=== PATIENT | male | born 1945 | race Caucasian/White ===

== ENCOUNTER 2018-08-06 13:56 | Observation (INO) ==
[2018-08-06] MEDS ORDERED: NITROGLYCERIN SL 0.4 MG/TAB TAB SL STA ×2 (14:14→15:19)
[2018-08-06] MEDS ORDERED: SODIUM CHLORIDE 0.9% 500 ML IV SCH (14:15)
[2018-08-06 14:29] LABS: Basophils # (auto) 0.02 K/uL (0-0.2); Basophils % (auto) 0.3 %; Eosinophils # (auto) 0.23 K/uL (0-0.5); Eosinophils % (auto) 3.2 %; Hematocrit (blood only) 39.3 % (42-52); Hemoglobin 13.6 g/dL (14.0-18.0); Immature Granulocytes # (auto) 0.01 K/uL (0.00-0.02); Immature Granulocytes % (auto) 0.1 %; Lymphocytes # (auto) 1.86 K/uL (1.2-3.4); Lymphocytes % (auto) 25.5 %; Mean Corpuscular Hgb Conc 34.6 g/dL (32-36); Mean Corpuscular Volume 85.1 fL (80-100); Monocytes # (auto) 0.62 K/uL (0.11-0.59); Monocytes % (auto) 8.5 %; Neutrophils # (auto) 4.55 K/uL (1.4-6.5); Neutrophils % (auto) 62.4 %; Platelet Count 160 K/uL (130-400); RDW Coefficient of Variation 12.8 % (11.5-14.5); RDW Standard Deviation 39.2 fL (36.4-46.3); Red Blood Count 4.62 M/uL (4.7-6.1); White Blood Count 7.29 K/uL (4.8-10.8)
[2018-08-06 14:47] LABS: Alanine Aminotransferase 24 U/L (12-78); Albumin Level 4.2 gm/dl (3.4-5.0); Aspartate Aminotransferase 14 U/L (15-37); BUN Creatinine Ratio 16.6 (10-20); Blood Urea Nitrogen 20 mg/dl (7-18); Carbon Dioxide 29 mmol/L (21-32); Chloride 101 mmol/L (98-107); Creatinine Clr Calc Pharmacy 51.4 ml/min; Est GFR (African American) 67.3; Glucose 114 mg/dl (70-99); Potassium 3.7 mmol/L (3.5-5.1); Sodium 136 mmol/L (136-145)
[2018-08-06 14:51] LABS: Albumin Globulin Ratio 1.2 (0.9-2); Alkaline Phosphatase 69 U/L (45-117); Bilirubin,Total 0.7 mg/dl (0.2-1); Globulin 3.5 gm/dl (2.5-4.0); Total Protein 7.7 gm/dl (6.4-8.2); Troponin I < 0.015 ng/ml (0-0.045)
--- NOTE | 2018-08-06 15:02 | XRay Report ---
XR chest 1V portable CLINICAL HISTORY: Atypical chest pain COMPARISON STUDY: 10/07/2014 FINDINGS: The heart is the upper limits of normal in size. There is no failure. There is no focal pul monary consolidation. There are no pleural effusions. There are calcified left mediastinal lymph node s. There are left upper lobe calcified granulomas.[ IMPRESSION: No active disease in the chest. Electronically signed by: Billy Mcconnell M.D. 08/06/2018 3:01 PM
--- NOTE | 2018-08-06 15:03 | XRay Report ---
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 There is no acute fracture, dislocation or op aque foreign body identified. Imaged lung carrillo appear clear. Calcified left hilar lymph nodes vannessa tible with prior granulomatous disease. IMPRESSION: 1. No acute fracture or dislocation. 2. Mild glenohumeral and moderate AC joint osteoarthritis. The above report was generated using voice recognition software. It may contain grammatical, syntax o r spelling errors. Electronically signed by: Remi Santana M.D. 08/06/2018 3:02 PM
[2018-08-06] MEDS ORDERED: ASPIRIN CHEW 324 MG PO STA (15:19)
--- NOTE | 2018-08-06 15:40 | Emergency Department Note ---
Entered by Mago Trivedi acting as a scribe for He Browne MD History of Present Illness General Chief complaint: Chest Pain Stated complaint: CHEST PAIN, INTO ARM Time Seen by Provider: 08/06/18 14:00 Source: patient Limitations: no limitations History of Present Illness Provider complaint: chest pain Onset (ago): week(s) 3 Location: chest Maximum Pain Intensity: 5 Current Pain Intensity: 5 Quality: + burning and + sharp Relieved By: + rest Exacerbated By: + other (shoveling ) Associated symptoms: + denies other symptoms (swelling in legs, black stool) and + fever/chills (chills no fever); no nausea/vomiting Treatments prior to arrival: NSAID (Aleve) The patient is a 72 white male w/ PMHx of GERD, diabetes, and hypertension who presents to the ED w/ CC of chest pain beginning 3 weeks prior to arrival. The patient rates his pain a 5/10 in severity and describes the pain as burning and sharp. The patient states that he has chills. The patient denies any fevers, nausea, vomiting, swelling in legs, and black stool. The patient states that shoveling exacerbates the pain and states that that resting relieves the pain. The patient states that walking and eating does not make his pain worse. The patient denies a history of blood clots in his lungs or legs. The patient states that he does not take blood thinners. The patient denies any alcohol or drug use. The patient states that he took an Aleve prior to arrival. The patient states that he had shoulder surgery on March 14. The patient states that he has a history of an early CA on his paternal side. Home Medications Home Medications Medication Instructions Recorded Confirmed Type aspirin 81 mg PO QAM 08/06/18 08/06/18 History atorvastatin 20 mg PO DAILY 08/06/18 08/06/18 History cholecalciferol (vitamin D3) 1,000 unit PO DAILY 08/06/18 08/06/18 History [Vitamin D3] cyanocobalamin (vitamin B-12) 1,000 mcg PO DAILY 08/06/18 08/06/18 History [Vitamin B-12] losartan-hydrochlorothiazide 0.5 tab PO QAM 08/06/18 08/06/18 History metformin 500 mg PO BID 08/06/18 08/06/18 History ondansetron HCl [Zofran] 4 mg PO Q6 PRN 08/06/18 08/06/18 History pantoprazole 40 mg PO QAM 08/06/18 08/06/18 History Allergies Allergy/AdvReac Type Severity Reaction Status Date / Time oxycodone AdvReac Unknown NAUSEA Unverified 08/06/18 14:37 Past Med/Surg History Medical History GERD (gastroesophageal reflux disease) (Chronic) Hypertension (Chronic) Lumbosacral disc disease (Chronic) Social History Current Living Situation: Spouse Other Information That Helps Us Care for You: No Feels Safe at Home: Yes Safety Concerns: Feels Safe At This Time Smoking Status: Never smoker Hx Alcohol Use: No Hx Substance Use: No Beliefs That Will Affect Care: None Preferred Language: Romanian Communication Ability: Effective Review of Systems See HPI for pertinent positives & negatives. and A total of 10 systems reviewed and were otherwise negative Physical Exam Vital Signs Vital Signs - 24 hr 08/06/18 13:57 08/06/18 14:30 08/06/18 14:42 Temperature Temperature Source Oral Sepsis Recent Fever Within 48 Hours No Sepsis New/Unexplained Change in Mental Status No Sepsis Action Taken by Nursing No Action Required Pulse Rate 71 Pulse Rate [Apical] 64 63 Pulse Rhythm [Apical] Pulse Strength [Apical] Respiratory Rate 20 18 17 Respiratory Effort / Characteristics Non-Labored Respiratory Depth Normal Normal Respiratory Pattern Regular Blood Pressure 150/81 H Blood Pressure [Left Arm] Blood Pressure [Right Arm] 134/77 121/65 Blood Pressure Mean 104 Blood Pressure Mean [Left Arm] Blood Pressure Mean [Right Arm] 96 83 Blood Pressure Position [Left Arm] Blood Pressure Position [Right Arm] Lying Pulse Oximetry 95 94 94 Oxygen Delivery Method Room Air Room Air Room Air 08/06/18 14:56 08/06/18 15:31 08/06/18 17:11 Temperature Temperature Source Sepsis Recent Fever Within 48 Hours Sepsis New/Unexplained Change in Mental Status Sepsis Action Taken by Nursing Pulse Rate Pulse Rate [Apical] 63 60 Pulse Rhythm [Apical] Regular Regular Pulse Strength [Apical] Normal Respiratory Rate 18 18 Respiratory Effort / Characteristics Non-Labored Spontaneous Non-Labored Spontaneous Non-Labored Spontaneous Respiratory Depth Normal Normal Normal Respiratory Pattern Regular Regular Regular Blood Pressure Blood Pressure [Left Arm] Blood Pressure [Right Arm] 117/62 129/69 Blood Pressure Mean Blood Pressure Mean [Left Arm] Blood Pressure Mean [Right Arm] 80 89 Blood Pressure Position [Left Arm] Blood Pressure Position [Right Arm] Pulse Oximetry 92 94 Oxygen Delivery Method Room Air Room Air Room Air 08/06/18 17:20 08/06/18 18:30 08/06/18 19:31 Temperature 36.7 C Temperature Source Oral Sepsis Recent Fever Within 48 Hours Sepsis New/Unexplained Change in Mental Status Sepsis Action Taken by Nursing Pulse Rate 58 L Pulse Rate [Apical] 60 Pulse Rhythm [Apical] Regular Pulse Strength [Apical] Normal Respiratory Rate 17 22 Respiratory Effort / Characteristics Non-Labored Spontaneous Non-Labored Respiratory Depth Normal Normal Respiratory Pattern Regular Regular Blood Pressure Blood Pressure [Left Arm] Blood Pressure [Right Arm] 128/68 152/77 H Blood Pressure Mean Blood Pressure Mean [Left Arm] Blood Pressure Mean [Right Arm] 88 102 Blood Pressure Position [Left Arm] Blood Pressure Position [Right Arm] Lying Pulse Oximetry 96 96 Oxygen Delivery Method Room Air Room Air 08/06/18 19:54 Temperature Temperature Source Sepsis Recent Fever Within 48 Hours Sepsis New/Unexplained Change in Mental Status Sepsis Action Taken by Nursing Pulse Rate Pulse Rate [Apical] 57 L Pulse Rhythm [Apical] Pulse Strength [Apical] Respiratory Rate 18 Respiratory Effort / Characteristics Respiratory Depth Respiratory Pattern Blood Pressure Blood Pressure [Left Arm] 135/74 Blood Pressure [Right Arm] Blood Pressure Mean Blood Pressure Mean [Left Arm] 94 Blood Pressure Mean [Right Arm] Blood Pressure Position [Left Arm] Semi-fowlers Blood Pressure Position [Right Arm] Pulse Oximetry 95 Oxygen Delivery Method Room Air GENERAL: Well appearing, well nourished, NAD, non-toxic. EYE EXAM: Normal conjunctiva. PERRL, no anisocoria and EOM's grossly intact w/o pains. OROPHARYNX: No exudate, posterior pharynx is clear, no tonsillar/uvular deviation or swelling. NECK: Supple, no nuchal rigidity, no adenopathy, non-tender. No signs of meningismus. LUNGS: Clear to auscultation bilaterally. Normal chest wall mechanics. HEART: NSR, no MRG. ABDOMEN: Abdomen soft, non-tender, normo-active bowel sounds, no masses, no rebound or guarding. BACK: No CVA TTP. SKIN: No rashes and no bruising. UPPER EXTREMITIES: Shoulder pain with AROM and abduction. LOWER EXTREMITIES: Negative Homans sign. NEURO EXAM: Cranial nerves II-XII grossly intact, normal speech, 5/5 strength in bilateral upper and lower extremities, no sensory deficits, moves all 4 extremities on command w/o issue. Course 1409: Past medical records reviewed. The patient was evaluated in room C12A, and a complete history and physical examination were performed. 1516: I checked on and updated the patient. The patient states that his chest pain has improved after taking the Nitroglycerin. 1638: I discussed the patient's case with Dr. Carl Ewing Hematology/ oncology. He states that he will evaluate the patient for further hospitalization. Consultations Consultation #1: Dr. Carl Ewing Hematology/oncology Time: 16:38 Administered Medications Discontinued Medications Aspirin (Aspirin) 324 mg PO NOW STA Stop: 08/06/18 15:20 Last Admin: 08/06/18 15:30 Dose: 324 mg Sodium Chloride (Nss) 500 mls @ 999 mls/hr IV .Q31M ODALIS Stop: 08/06/18 14:45 Last Infusion: 08/06/18 15:03 Dose: 0 mls/hr Admin: 08/06/18 14:29 Dose: 999 mls/hr Nitroglycerin (Nitrostat) 0.4 mg SL NOW STA Stop: 08/06/18 14:15 Last Admin: 08/06/18 14:29 Dose: 0.4 mg Nitroglycerin (Nitrostat) 0.4 mg SL NOW STA Stop: 08/06/18 15:20 Last Admin: 08/06/18 15:30 Dose: 0.4 mg Medical Decision Making Medical Records Attestation: I reviewed the patient's medical records. Laboratory Data Attestation: I reviewed the patient's lab results. Result diagrams: 08/06/18 14:15 08/06/18 14:15 Lab Results 08/06/18 08/06/18 08/06/18 Range/Units 14:15 14:15 14:32 WBC 7.29 (4.8-10.8) K/uL RBC 4.62 L (4.7-6.1) M/uL Hgb 13.6 L (14.0-18.0) g/dL Hct 39.3 L (42-52) % MCV 85.1 (80-100) fL MCH 29.4 (25-34) pg MCHC 34.6 (32-36) g/dL RDW Std Deviation 39.2 (36.4-46.3) fL RDW Coeff of Navjot 12.8 (11.5-14.5) % Plt Count 160 (130-400) K/uL MPV 10.0 (7.4-10.4) fL Immature Gran % (Auto) 0.1 % Neut % (Auto) 62.4 % Lymph % (Auto) 25.5 % Pitkin % (Auto) 8.5 % Eos % (Auto) 3.2 % Baso % (Auto) 0.3 % Immature Gran # (Auto) 0.01 (0.00-0.02) K/uL Neut # (Auto) 4.55 (1.4-6.5) K/uL Lymph # (Auto) 1.86 (1.2-3.4) K/uL Pitkin # (Auto) 0.62 H (0.11-0.59) K/uL Eos # (Auto) 0.23 (0-0.5) K/uL Baso # (Auto) 0.02 (0-0.2) K/uL POC D-Dimer 168 (0-450) ng/mlFEU Sodium 136 (136-145) mmol/L Potassium 3.7 (3.5-5.1) mmol/L Chloride 101 (98-107) mmol/L Carbon Dioxide 29 (21-32) mmol/L Anion Gap 6.0 (3-11) BUN 20 H (7-18) mg/dl Creatinine 1.22 (0.6-1.4) mg/dl Est Cr Clr Drug Dosing 51.4 ml/min Est GFR ( Amer) 67.3 Est GFR (Non-Af Amer) 58.0 BUN/Creatinine Ratio 16.6 (10-20) Glucose 114 H (70-99) mg/dl POC Glucose (70-99) Calcium 9.0 (8.5-10.1) mg/dl Total Bilirubin 0.7 (0.2-1) mg/dl AST 14 L (15-37) U/L ALT 24 (12-78) U/L Alkaline Phosphatase 69 (45-117) U/L Troponin I < 0.015 (0-0.045) ng/ml Total Protein 7.7 (6.4-8.2) gm/dl Albumin 4.2 (3.4-5.0) gm/dl Globulin 3.5 (2.5-4.0) gm/dl Albumin/Globulin Ratio 1.2 (0.9-2) Lipase 232 (73-393) U/L 08/06/18 Range/Units 20:22 WBC (4.8-10.8) K/uL RBC (4.7-6.1) M/uL Hgb (14.0-18.0) g/dL Hct (42-52) % MCV (80-100) fL MCH (25-34) pg MCHC (32-36) g/dL RDW Std Deviation (36.4-46.3) fL RDW Coeff of Navjot (11.5-14.5) % Plt Count (130-400) K/uL MPV (7.4-10.4) fL Immature Gran % (Auto) % Neut % (Auto) % Lymph % (Auto) % Pitkin % (Auto) % Eos % (Auto) % Baso % (Auto) % Immature Gran # (Auto) (0.00-0.02) K/uL Neut # (Auto) (1.4-6.5) K/uL Lymph # (Auto) (1.2-3.4) K/uL Pitkin # (Auto) (0.11-0.59) K/uL Eos # (Auto) (0-0.5) K/uL Baso # (Auto) (0-0.2) K/uL POC D-Dimer (0-450) ng/mlFEU Sodium (136-145) mmol/L Potassium (3.5-5.1) mmol/L Chloride (98-107) mmol/L Carbon Dioxide (21-32) mmol/L Anion Gap (3-11) BUN (7-18) mg/dl Creatinine (0.6-1.4) mg/dl Est Cr Clr Drug Dosing ml/min Est GFR ( Amer) Est GFR (Non-Af Amer) BUN/Creatinine Ratio (10-20) Glucose (70-99) mg/dl POC Glucose 144 H (70-99) Calcium (8.5-10.1) mg/dl Total Bilirubin (0.2-1) mg/dl AST (15-37) U/L ALT (12-78) U/L Alkaline Phosphatase (45-117) U/L Troponin I (0-0.045) ng/ml Total Protein (6.4-8.2) gm/dl Albumin (3.4-5.0) gm/dl Globulin (2.5-4.0) gm/dl Albumin/Globulin Ratio (0.9-2) Lipase (73-393) U/L Imaging Data Radiologist's Impression: Radiology results as stated below per my review and the radiologist's interpretation: XR chest 1V portable CLINICAL HISTORY: Atypical chest pain COMPARISON STUDY: 10/07/2014 FINDINGS: The heart is the upper limits of normal in size. There is no failure. There is no focal pulmonary consolidation. There are no pleural effusions. There are calcified left mediastinal lymph nodes. There are left upper lobe calcified granulomas.[ IMPRESSION: No active disease in the chest. Electronically signed by: Billy Mcconnell M.D. 08/06/2018 3:01 PM XR shoulder LT min 2V routine HISTORY: 72 years-old Male pain, prior arthroscopy and repair acute left shoulder pain status post fall COMPARISON: Chest radiograph of same day TECHNIQUE: 3 views of the left shoulder FINDINGS: Mild glenohumeral and moderate AC joint osteoarthritis. There is no acute fracture, dislocation or opaque foreign body identified. Imaged lung carrillo appear clear. Calcified left hilar lymph nodes compatible with prior granulomatous disease. IMPRESSION: 1. No acute fracture or dislocation. 2. Mild glenohumeral and moderate AC joint osteoarthritis. The above report was generated using voice recognition software. It may contain grammatical, syntax or spelling errors. Electronically signed by: Remi Santana M.D. 08/06/2018 3:02 PM ECG Data Attestation: I personally reviewed and interpreted this ECG as follows: Indication: chest pain Rate (beats per minute): 65 Rhythm: normal sinus Findings: + other (normal intervals, normal axis); no acute ischemic change MDM Narrative The patient is a 72 white male w/ PMHx of GERD, diabetes, and hypertension who presents to the ED w/ CC of chest pain beginning 3 weeks prior to arrival. The differential was considered includes acute myocardial infarction, acute coronary syndrome, myocarditis, pericarditis, pericardial effusions /tamponad, esophageal perforation, thoracic aortic dissection, pulmonary embolism, pneumonia, pneumothorax, pancreatitis, shingles, acute cholecystitis, perforated abdominal viscus. Patient was seen and evaluated the bedside. The patient did present with intermittent chest pain times 3 weeks. The patient notes that this would did worsen with recent snow shoveling. The patient does have family cardiac history of CA in his father before the age of 60. Patient is never had any provocative testing. Patient denies alcohol or tobacco use. Patient denies prior history of DVT or PE. Patient's EKG is fairly unremarkable. Troponin is not L elevated nor detectable. Patient did receive nitro which did improve his discomfort. Given the patient's prior early family cardiac history no prior cardiac testing, pain worsening with exertion as well as a questionably suspicious history of believe he would benefit from further evaluation and treatment. I did speak with the on-call hospitalist who agreed to further evaluate treat the patient. Patient was given full dose aspirin. Impression & Plan Chest pain Discharge Plan Visit Data *Final* Discharge Date/Time: 08/06/18 17:45 Chief Complaint: Chest Pain Stated Complaint: CHEST PAIN, INTO ARM ED Provider: He Browne Discharge Problem: Chest pain Patient Disposition: Admitted As Inpatient Discharge Instructions Interventions: ED Discharge Assessment Last Done: 08/06/18 17:45 The scribe's documentation has been prepared under my direction and personally reviewed by me in its entirety. I confirm that the note above accurately reflects all work, treatment, procedures, and medical decision making performed by me.
--- NOTE | 2018-08-06 16:48 | History & Physical Report ---
Date of Service August 06, 2018 Assessment & Plan (1) Chest pain: admit obs tele Initial troponin negative, will trend Echo in am CBC, PRP am D-dimer was wnl Chest pain likely musculoskeletal - a mild version of patient's pain can be reproduced with deep palpation, however patient has strong family history with father dying at 60 after heart attack at 57, so will keep for observation and trend cardiac markers. (2) GERD (gastroesophageal reflux disease): continue protonix (3) Hypertension: continue losartan- hctz (4) DVT prophylaxis: scds History of Present Illness Primary Care Provider: David Hubert Kinjal Mr. Conde presented to the ED after 3 weeks of chest pain that radiates from his left shoulder to his lateral left chest. There is no association between exertion or rest. It was very bad over the night and so he felt he should come to the ED today. He has no cough, he does have some sob with exertion such as mowing the lawn. He denies changes in bowels or bladder or bloody stools. He has had some chills and aches with recent runny nose but no cough. He did have a stress test in 2010 which was normal Patient's father at age 60. He had a heart attack at age 57. Mother had DMII and of cancer Patient drinks very occasionally, non smoker, no smokeless tobacco. Patient lives with his and is retired from the [employer] Allergies Allergy/AdvReac Type Severity Reaction Status Date / Time oxycodone AdvReac Unknown NAUSEA Unverified 08/06/18 14:37 Home Medications Home Medications Medication Instructions Recorded Confirmed Type aspirin 81 mg PO QAM 08/06/18 08/06/18 History atorvastatin 20 mg PO DAILY 08/06/18 08/06/18 History cholecalciferol (vitamin D3) 1,000 unit PO DAILY 08/06/18 08/06/18 History [Vitamin D3] cyanocobalamin (vitamin B-12) 1,000 mcg PO DAILY 08/06/18 08/06/18 History [Vitamin B-12] losartan-hydrochlorothiazide 0.5 tab PO QAM 08/06/18 08/06/18 History metformin 500 mg PO BID 08/06/18 08/06/18 History ondansetron HCl [Zofran] 4 mg PO Q6 PRN 08/06/18 08/06/18 History pantoprazole 40 mg PO QAM 08/06/18 08/06/18 History Past Med/Surg History Medical History GERD (gastroesophageal reflux disease) (Chronic) Hypertension (Chronic) Lumbosacral disc disease (Chronic) Social History Feels Safe at Home: Yes Smoking Status: Never smoker Review of Systems All systems reviewed & are unremarkable except as noted in HPI & below Physical Exam 2 Vital Signs (Past 24 Hours): Last Vital Signs Pulse 60 08/06/18 15:31 Resp 18 08/06/18 15:31 BP 129/69 08/06/18 15:31 Pulse Ox 94 08/06/18 15:31 Physical Exam: General: no distress Eyes: normal inspection, PERLL Respiratory: chest non tender, clear to auscultation, normal breath sounds, no respiratory distress, no accessory muscle use Cardiac: regular rate and rhythm, no rub or gallop, no murmur, no edema, no jvd GI/: active bowel sounds, no abd pain or tenderness, soft, non distended Extremities: normal range of motion, normal strength, left shoulder tender to deep palpation with mild radiation to chest, full range of motion, not warm or erythematous Neuro:oriented x 3, moves all extremities Psych: alert, normal mood and affect Skin: normal color, dry Code Status & VTE Plan Code Status full code Supervising Physician Co-Signing Physician Notes [employer] Physician Supervision Note: I discussed with Juli Albert NP and agree with findings and plan as documented in the note. Any exceptions or clarifications are listed here: None Patient relates a atypical type left-sided chest pain associate with shoulder movement patient had a negative evaluation upon intake including troponin and EKG he does have a family history that is supportive of heart disease. Vitals are reviewed and stable Physical exam shows heart be regular there is no chest wall tenderness but pain and can be elicited by shoulder movement Patient will be kept in observation he will have serial troponins and EKGs Documented By: Julio Braxton
[2018-08-06] MEDS ORDERED: ONDANSETRON 4 MG TAB PO PRN (18:15)
[2018-08-06] MEDS ORDERED: ONDANSETRON INJ 2 MG/ML 2 ML VIAL IV PRN (18:15)
[2018-08-06] MEDS ORDERED: POLYETHYLENE (MIRALAX) 17 GM PACK PO PRN (18:15)
[2018-08-06] MEDS ORDERED: METFORMIN HCL ER 500 MG TABCR PO SCH (18:30)
[2018-08-06] MEDS ORDERED: INFLUENZA ADMINISTRATION CHARGE ONE (20:45)
[2018-08-06] MEDS ORDERED: INFLUENZA VACCINE HIGH DOSE 65+ 0.5 ML SYR IM ONE (20:45)
[2018-08-06] MEDS: INSULIN ASPART 100 UNITS/ML 3 ML PEN SC SCH (20:57)
[2018-08-06] MEDS: ASPIRIN 81 MG ECTAB PO SCH (20:59)
[2018-08-06] MEDS: ACETAMINOPHEN 325 MG TAB PO PRN (22:07)
[2018-08-07 04:35] LABS: Basophils # (auto) 0.03 K/uL (0-0.2); Basophils % (auto) 0.4 %; Eosinophils # (auto) 0.26 K/uL (0-0.5); Eosinophils % (auto) 3.7 %; Hematocrit (blood only) 36.1 % (42-52); Hemoglobin 12.4 g/dL (14.0-18.0); Immature Granulocytes # (auto) 0.01 K/uL (0.00-0.02); Immature Granulocytes % (auto) 0.1 %; Lymphocytes # (auto) 1.87 K/uL (1.2-3.4); Lymphocytes % (auto) 26.4 %; Mean Corpuscular Hgb Conc 34.3 g/dL (32-36); Mean Corpuscular Volume 85.1 fL (80-100); Mean Platelet Volume 9.6 fL (7.4-10.4); Monocytes # (auto) 0.56 K/uL (0.11-0.59); Monocytes % (auto) 7.9 %; Neutrophils # (auto) 4.35 K/uL (1.4-6.5); Neutrophils % (auto) 61.5 %; Platelet Count 146 K/uL (130-400); RDW Coefficient of Variation 12.7 % (11.5-14.5); RDW Standard Deviation 39.2 fL (36.4-46.3); Red Blood Count 4.24 M/uL (4.7-6.1); White Blood Count 7.08 K/uL (4.8-10.8)
[2018-08-07 04:50] LABS: BUN Creatinine Ratio 18.1 (10-20); Blood Urea Nitrogen 24 mg/dl (7-18); Calcium 8.3 mg/dl (8.5-10.1); Carbon Dioxide 29 mmol/L (21-32); Chloride 104 mmol/L (98-107); Creatinine Clr Calc Pharmacy 46.8 ml/min; Est GFR (African American) 60.1; Est GFR (Non-African American) 51.8; Glucose 109 mg/dl (70-99); Potassium 3.6 mmol/L (3.5-5.1); Sodium 137 mmol/L (136-145)
[2018-08-07 04:55] LABS: Chol HDL Ratio 3; Cholesterol 113 mg/dl (0-200); HDL Cholesterol 46 mg/dl; LDL Cholesterol Calculated 35 mg/dl; Triglycerides 161 mg/dl (0-150); Troponin I < 0.015 ng/ml (0-0.045); VLDL Cholesterol 32 mg/dl
[2018-08-07] MEDS: ACETAMINOPHEN 325 MG TAB PO PRN (07:25)
[2018-08-07] MEDS: ASPIRIN 81 MG ECTAB PO SCH (07:25)
[2018-08-07] MEDS: INSULIN ASPART 100 UNITS/ML 3 ML PEN SC SCH ×2 (07:27→12:42)
[2018-08-07] MEDS ORDERED: LOSARTAN/HCTZ 50/12.5MG TAB PO SCH (09:00)
[2018-08-07] MEDS ORDERED: PANTOprazole 40 MG TAB PO SCH (09:00)
[2018-08-07] MEDS ORDERED: ATORVASTATIN 20 MG TAB PO SCH (09:00)
[2018-08-07] MEDS ORDERED: CYANOCOBALAMIN 500 MCG TABLET (VITAMIN B-12) PO SCH (09:00)
[2018-08-07] MEDS ORDERED: CHOLECALCIFEROL 1,000 UNITS TAB PO SCH (09:00)
[2018-08-07] MEDS ORDERED: DOBUTamine HCL 12.5 MG/ML 20 ML VIAL IV ONE (09:58)
[2018-08-07] MEDS ORDERED: METOPROLOL TARTRATE 1 MG/ML VIAL IV ONE ×2 (09:58→09:59)
[2018-08-07] MEDS ORDERED: ATROPINE SULFATE 0.1 MG/ML 10ML SYR IV ONE ×2 (09:58→09:59)
--- NOTE | 2018-08-07 11:45 | Cardiology Consultation ---
Date of Consultation August 07, 2018 Assessment & Plan (1) Chest pain: Chest pain, atypical for angina. Patient previously had a an exercise stress echocardiogram performed in 2010 with noted equivocal EKG changes and the heart rate recovery was accelerated and therefore the post exercise images were felt to be equivocal. He therefore underwent a dobutamine stress test the same day with appropriate augmentation of the left ventricle and mild noted equivocal EKG changes. Review of his outpatient [facility] record, the patient underwent a repeat exercise stress echocardiogram in 2013 with what was described as an abnormal EKG response at that time with normal wall motion. No symptoms suggestive angina were reported at that time. He has a long-standing history of stable asymptomatic sinus bradycardia. Today, the patient underwent dobutamine stress echocardiogram. Mild equivocal EKG changes were noted with pharmacologic stress, but no symptoms suggestive angina were reproduced, and the left ventricular wall motion was appropriate with pharmacologic stress. Although the patient does have risk factors for underlying coronary heart disease including hypertension, age, dyslipidemia and type 2 diabetes mellitus, his presenting symptoms are atypical and characteristic for angina, and I believe that the stress test findings today represent a low risk of underlying hemodynamically significant coronary heart disease. He has a history of previous equivocal versus abnormal EKG response on 3 previous stress test, and he has done well previously with ongoing observation. It appears the patient already has a follow-up scheduled with me on 08/14/18 as well as an outpatient follow-up with his PCP on 08/09/18 we will keep these appointments. He is stable for discharge from a cardiac perspective. History of Present Illness Attending Physician: Julio Braxton MD History of Present Illness Froy Conde is a 72 year old male seen in cardiology consultation per the request of Juli Albert PA-C for the evaluation of chest discomfort. The patient's primary care physician is Dr Layton. The patient presented to [facility] on 08/06/18 with a left- sidedChest discomfort that radiates from his left shoulder to his left lateral chest. The patient states the discomfort does not seem to be reproduced necessarily with aerobic exertion, noted with rest and stress. He states that he had surgery in that shoulder about 6 months ago in February,. EKG performed on arrival on 08/06/18 at 1403 revealed normal sinus rhythm with normal ST segments. Patient's symptoms resolved during his observation interval overnight last night. Troponin was negative x3 thus far. During my assessment the patient he was totally comfortable. He had no acute distress. PAST MEDICAL HISTORY Type 2 diabetes mellitus Hypertension Dyslipidemia Rotator cuff syndrome of the left shoulder FAMILY HISTORY Father in his 60s and his sleep unexpectedly with having had a history of myocardial infarction in his early 50s. SOCIAL HISTORY He is a lifelong non-smoker He is He is retired from the [employer] Allergies Allergy/AdvReac Type Severity Reaction Status Date / Time oxycodone AdvReac Unknown NAUSEA Unverified 08/06/18 14:37 Home Medications Home Medications Medication Instructions Recorded Confirmed Type aspirin 81 mg PO QAM 08/06/18 08/06/18 History atorvastatin 20 mg PO DAILY 08/06/18 08/06/18 History cholecalciferol (vitamin D3) 1,000 unit PO DAILY 08/06/18 08/06/18 History [Vitamin D3] cyanocobalamin (vitamin B-12) 1,000 mcg PO DAILY 08/06/18 08/06/18 History [Vitamin B-12] losartan-hydrochlorothiazide 0.5 tab PO QAM 08/06/18 08/06/18 History metformin 500 mg PO BID 08/06/18 08/06/18 History ondansetron HCl [Zofran] 4 mg PO Q6 PRN 08/06/18 08/06/18 History pantoprazole 40 mg PO QAM 08/06/18 08/06/18 History Patient History Medical History GERD (gastroesophageal reflux disease) (Chronic) Hypertension (Chronic) Lumbosacral disc disease (Chronic) Social History Current Living Situation: Spouse Other Information That Helps Us Care for You: No Feels Safe at Home: Yes Safety Concerns: Feels Safe At This Time Smoking Status: Never smoker Hx Alcohol Use: No Hx Substance Use: No Beliefs That Will Affect Care: None Preferred Language: Tamazight Communication Ability: Effective Review of Systems A 10 point review of systems is reviewed and is negative with the exception of that above Physical Exam 2 Vital Signs (Past 24 Hours): Last Vital Signs Temp 36.3 C L 08/07/18 11:30 Pulse 55 L 08/07/18 11:30 Resp 16 08/07/18 11:30 BP 135/81 08/07/18 11:30 Pulse Ox 96 08/07/18 11:30 Physical Exam: General: no acute distress and stated age Eyes: conjunctiva are pink and non-injected, sclera clear Neck: normal jugular venous pulse, no hepatojugular reflux Chest: normal shape and normal respiratory effort Lungs: clear to auscultation and percussion Cardiac Exam: - regular heart sounds, no murmurs, rubs, or gallops, no jugular venous distention Abdomen: abdomen soft, non-tender, no abnormal masses and no hepatosplenomegaly Musculoskeletal: no gait disturbance, no weakness Extremities: no edema and no cyanosis Neuro:awake, coversant, follows commands, no focal motor deficits Psych: appropriate affect and insight. Results & Data Diagnostic Findings Resting echocardiogram performed today 08/07/18 reviewed independently by the undersigned: Borderline concentric left ventricular hypertrophy is present. Left ventricular systolic function is normal with left ventricular ejection fraction in the range of 60-65%. The right ventricular chamber size and systolic function are normal. Moderate aortic valve sclerosis without stenosis was noted. The patient underwent dobutamine stress echocardiogram. Equivocal EKG changes are noted with pharmacologic stress including [address] depression the inferior and lateral leads that rapidly resolved in the post pharmacologic stress recovery interval. No symptoms suggestive of angina were reproduced with the test. The left ventricular wall motion was normal at rest with appropriate augmentation pharmacologic stress. Overall, stress test results are felt to represent a low likelihood of hemodynamically significant obstructive CAD. _ (1) Chest pain Chest pain type: unspecified Ischemic chest pain type: Qualified Code(s): R07.9 - Chest pain, unspecified
--- NOTE | 2018-08-07 12:25 | Discharge Summary ---
Date of Service August 07, 2018 Admission HPI Per Admitting Provider Mr. Conde presented to the ED after 3 weeks of chest pain that radiates from his left shoulder to his lateral left chest. There is no association between exertion or rest. It was very bad over the night and so he felt he should come to the ED today. He has no cough, he does have some sob with exertion such as mowing the lawn. He denies changes in bowels or bladder or bloody stools. He has had some chills and aches with recent runny nose but no cough. Patient's father at age 60. He had a heart attack at age 57. Mother had DMII and of cancer Patient drinks very occasionally, non smoker, no smokeless tobacco. Patient lives with his and is retired from the [employer] Principal Diagnosis Atypical chest pain Discharge Exam Constitutional WD/WN, vitals as above Respiratory normal respiratory effort, lungs clear to auscultation Cardiovascular RRR, no murmur, no edema Gastrointestinal (Abdomen) normal bowel sounds, soft, nontender, no hepatosplenomegaly Musculoskeletal no cyanosis or clubbing, extremities motor strength 5/5 Skin no rashes, warm and dry Neurologic moves all extremities and awake Psychiatric A+Ox3, euthymic affect Discharge Data Allergies Allergy/AdvReac Type Severity Reaction Status Date / Time oxycodone AdvReac Unknown NAUSEA Unverified 08/06/18 14:37 Consultations 08/06/18 15:19 ED Decision to Admit Stat 08/07/18 09:22 Consult Cardiology Routine Hospital Course (1) Chest pain: admitted obs tele - no events on monitor Troponins negative x3 D-dimer was wnl Chest pain likely musculoskeletal - a mild version of patient's pain can be reproduced with deep palpation, however patient has strong family history with father dying at 60 after heart attack at 57 - consulted Dr. Pimentel and patient went for a dobutamine stress test. Dr. Pimentel found him to have a low likelihood of hemodynamically significant CAD and felt he was ok to discharge from cardiac perspective. He did have some equivical EKG changes on his stress but he has a history of previous equivocal versus abnormal EKG response on 3 previous stress test, and he has done well previously with ongoing observation. Patient will follow up with Dr. Pimentel next week as well as his pcp. (2) GERD (gastroesophageal reflux disease): continue protonix (3) Hypertension: continue losartan- hctz (4) DVT prophylaxis: scds Total Time Total Time Spent Total Time Spent (In Minutes): greater than 30 minutes Total Time Includes: Examination of the Patient, Discharge Planning, Medication Reconciliation and Communication With Other Providers Discharge Plan Discharge Items Patient Disposition: Home - Self-Care Reason For Visit: CHEST PAIN Discharge Diagnosis: Chest pain Discharge Goals: Diagnostic testing Activity: Resume your previous activity Non-emergency contact: Primary Care Provider Call non-emergency contact if: you have any medication questions, your symptoms worsen and your pain is not controlled Follow-up/Referrals: Molina Pimentel DO [Digital Project Manager] - 08/14/18 10:45 am (Please, follow up at [facility] Cardiology Office with Dr. Pimentel on SundayAugust 14 at 10:45 am. *This office is located in [facility] at [address] in [place]. If you need to change this appointment, call the office at [phone]. ) David Layton [Primary Care Provider] - 08/09/18 2:00 pm (Please, follow up with Dr. Layton on SundayAugust 09 at 2:00 pm. *If you need to change this appointment, call the office at [phone].) Diet: Carb Consistent or DM2 Addtl Provider Instructions: Today you underwent a dobutamine stress echocardiogram test. Although you do have risk factors for underlying coronary heart disease including hypertension, age, dyslipidemia and type 2 diabetes mellitus, your symptoms are not typical for angina (pain associated with the heart not getting enough oxygen). Dr. Pimentel, the stone operator that saw you today and reviewed your stress test, believes that the stress test findings today represent a low risk of underlying significant coronary heart disease. He recommends outpatient observation and we will have you follow up with him next week as well as your primary care provider. I will not make any changes to your medication regimen, you should continue to take your home medications as directed. Prescriptions: Continue cyanocobalamin (vitamin B-12) [Vitamin B-12] 1,000 mcg Tablet Extended Release 1,000 mcg PO DAILY RF: 0 atorvastatin 20 mg tablet 20 mg PO DAILY RF: 0 ondansetron HCl [Zofran] 4 mg Tablet 4 mg PO Q6 PRN (Reason: Indigestion) RF: 0 aspirin 81 mg Tablet,Delayed Release (Dr/Ec) 81 mg PO QAM RF: 0 pantoprazole 40 mg tablet,delayed release (DR/EC) 40 mg PO QAM RF: 0 losartan-hydrochlorothiazide 50-12.5 mg tablet 0.5 tab PO QAM RF: 0 metformin 500 mg tablet extended release 24 hr 500 mg PO BID RF: 0 cholecalciferol (vitamin D3) [Vitamin D3] 1,000 unit Tablet 1,000 unit PO DAILY RF: 0 Stand-Alone Forms: [facility] Discharge Orders: Discharge Order (Routine); Ordered 08/07/18 Ordered By: Juli Albert Admission Data Admit Date/Time: 08/06/18 16:46 Attending Provider: Julio Braxton Admit Provider: Julio Braxton Primary Care Provider: David Layton Other Providers: Kendall Henry James J Service: Telemetry
== END 2018-08-07 13:49 | disposition home or self-care (01) ==
LOC: ED 13:56 → 2S 13:56

== ENCOUNTER 2023-08-16 02:40 | Inpatient (IN) ==
[2023-08-16 03:01] LABS: Basophils # (auto) 0.07 K/uL (0.00-0.20); Basophils % (auto) 0.6 %; Eosinophils # (auto) 0.37 K/uL (0.00-0.50); Eosinophils % (auto) 3.2 %; Hematocrit (blood only) 39.9 % (42.0-52.0); Hemoglobin 13.6 g/dl (14.0-18.0); Immature Granulocytes # (auto) 0.13 K/uL (0.01-0.20); Immature Granulocytes % (auto) 1.1 %; Lymphocytes % (auto) 31.6 %; Mean Corpuscular Hemoglobin 29.2 pg (25.0-34.0); Mean Corpuscular Hgb Conc 34.1 g/dL (32.0-36.0); Mean Corpuscular Volume 85.6 fL (80.0-100.0); Monocytes # (auto) 0.79 K/uL (0.11-0.59); Monocytes % (auto) 6.7 %; Neutrophils # (auto) 6.66 K/uL (1.40-6.50); Neutrophils % (auto) 56.8 %; Platelet Count 199 K/uL (130-400); RDW Coefficient of Variation 12.2 % (11.5-14.5); RDW Standard Deviation 37.7 fL (36.4-46.3); Red Blood Count 4.66 M/uL (4.70-6.10); White Blood Count 11.72 K/ul (4.8-10.8)
[2023-08-16 03:04] LABS: iSTAT Creatinine 1.2 mg/dl (0.6-1.3); iSTAT Hemoglobin 13.6 g/dl (14.0-18.0); iSTAT Ionized Calcium 1.19 mmol/l (1.12-1.32); iSTAT Potassium 3.2 mmol/L (3.3-5.0)
--- NOTE | 2023-08-16 03:05 | Emergency Department Note ---
Impression & Plan Intracranial hemorrhage, Unresponsive, Endotracheally intubated ED Provider Note HISTORY OF PRESENT ILLNESS: Patient is a 77-year-old male presenting in respiratory arrest. reported that she woke up to the patient vomiting around 2 AM. She went to the bathroom to see him and found him to be diaphoretic and vomiting. He was complaining of pain in the back of his neck and lightheadedness. She reports that he became unresponsive and she called 911. On EMS arrival, the patient was minimally responsive. He did have a gag reflex and they inserted an oral airway and assisted with baw-ydbqt-twwc ventilation. He was bradycardic to the 40s. In route to the hospital, he remained unresponsive and required wqe-qjuox-aano ventilation. reports that the patient was doing well all day today up until this evening. He reports he went to bed around 11:30 PM after watching the news and was his normal self. ROS: as above PHYSICAL EXAM: Constitutional: Patient appears in moderate distress. HENT: Head: Normocephalic and atraumatic. Eyes: Pupils equal but minimally reactive Mouth/Throat: Mucous membranes moist. Oral airway in place. Neck: Trachea midline. Neck supple. Cardiovascular: Tachycardic with irregularly irregular rhythm. No murmurs, rubs or gallops. Intact distal pulses. Pulmonary/Chest: Respirations being assisted by zwx-adzic-punq ventilation. Breath sounds equal bilaterally. Abdominal: Abdomen soft, no tenderness, rebound or guarding. Musculoskeletal: No edema, tenderness or deformity noted. Skin: Warm and dry. No rash, erythema, pallor or cyanosis Neurological: Unresponsive. Does not move any extremities spontaneously. GCS of 3. Gag reflex present. Agonal respirations. MDM: - Vitals signs showed hypertension and tachycardia. - History obtained via EMS, given patient's unresponsiveness. Patient presents with unresponsive episode. Patient's states that she woke up to the patient vomiting around 2 AM. She went to the bathroom to see him and found him to be diaphoretic and vomiting. He was complaining of pain in the back of his neck and lightheadedness. He became unresponsive and she called 911. On EMS arrival, patient was minimally responsive but did have a gag reflex. - Chronic conditions affecting care: HTN; HLD; DM-2; CKD stage 3 - Differential diagnoses include, but are not limited to: Acute coronary syndrome; pulmonary embolism; dissection; tension pneumothorax; esophageal rupture; pneumonia - Order placed for continuous cardiac monitoring. At this time, monitor showed rate of 150 bpm with irregular rhythm, per my interpretation. - External medical records reviewed. Primary care visit note dated 03/02/2023 was reviewed. Patient follows in their clinic for his 6-month checkups. He is a diabetic. Not currently on any anticoagulation per documentation other than aspirin. - On arrival to the ER, the patient is unresponsive. Oral airway is in place and respirations are being assisted with qia-agrqy-yryb ventilation. Patient does have an intact gag reflex. Rapid sequence intubation was initiated with etomidate and succinylcholine. Patient was intubated on first pass intubation by myself. Please see procedure note below. Postintubation chest x-ray showed tube was slightly above the hyacinth, per my interpretation, so it was advanced 1 cm. - POC BMP showed stable creatinine. Patient taken immediately to scanner. - CT head wo contrast showed extensive intracranial bleed, per my interpretation. Noted to have intraventricular blood and blood in the cerebellum - Reassessment of patient's pupillary response showed that his pupils are currently fixed and dilated. - EKG interpreted by myself showed atrial fibrillation with rapid ventricular rate. Rate 137 bpm. QT 286. No acute ischemic changes. - Laboratory workup interpreted by myself showed leukocytosis (WBC 11.72); hypokalemia (K 3.4); hyperglycemia (280); normal lipase; normal TSH - [facility], Dr. James Marie at 03:27. He reviewed the images in real-time and stated that the patient's bleed is nonsurvivable. He reports that there is no normal brainstem noted on the CT scan and the patient is already noted to have hydrocephalus concerning for the beginnings of herniation. - Discussed patient's results with and patient's daughter. Reviewed CT images with them and discussed that this is a nonsurvivable bleed. They report the patient is DNR. They are not interested in any medical interventions such as hypertonic's at this time. They would like to keep the patient intubated and comfortable until further family communicated to the hospital. - Discussed case with ICU NICOLETTE, Walter, for consult. - Discussion was had with caregivers homecare about patient's case and need for admission - Hospitalist, Dr. Wing, consulted for admission - [facility] Plan to keep the patient comfortable and extubate when family is present. PROCEDURE: Endotracheal intubation Indication: Agonal respiration; unresponsiveness. The patient was on vba-ragvb-mrbx ventilation prior to the procedure. Suction, airway equipment, RSI drugs, respiratory equipment, and appropriate personnel were prepared prior to the initiation of the procedure. A time out was taken. Induction was performed with 20 mg IV etomidate. Paralysis was administered using 100 mg IV succinylcholine. After observing the clinical benefit of the medications, the airway was easily visualized utilizing a glidescope. A 7.5 size ETT tube was placed atraumatically to 20 cm using standard technique. The cuff inflated without signs of malfunction. There were bilateral breath sounds, positive colormetric change, no gastric sounds, a good capnography waveform, and post procedure pulse oximetry was 98%. Post intubation sedation was administered using propofol. There were no complications. I have personally spent 62 minutes of critical care time in the direct management of this patient. This includes bedside care, interpretation of diagnostic studies, and testing, discussion with consultants, patient, and family members, and other required patient management activities. This 62 minutes is in excess of all separately billable procedures. ASSESSMENT AND PLAN: Diagnosis: Intracranial hemorrhage; unresponsive; endotracheally intubated Plan: Admit Past Med/Surg History Medical History Diabetes GERD (gastroesophageal reflux disease) Hyperlipidemia Hypertension Lumbosacral disc disease Surgical History History of arthroscopy LEFT SHOULDER History of colonoscopy History of esophagogastroduodenoscopy (EGD) History of tooth extraction Hx of hernia repair x2 S/P cataract extraction right Family History Father Diabetes Coronary heart disease Social History Smoking Status: Unknown if ever smoked Second Hand Exposure: No; Do You Dip or Chew Tobacco: No; Hx Alcohol Use: Yes Alcohol type: beer Hx Substance Use: No Preferred Language: Serbian Communication Ability: Effective 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 Beliefs That Will Affect Care: None Current Living Situation: Spouse Feels Safe at Home: Yes Assistive Devices: Glasses Allergies Allergies Allergy/AdvReac Type Severity Reaction Status Date / Time lisinopril AdvReac Intermediate Cough Verified 08/16/23 02:51 oxycodone AdvReac Intermediate NAUSEA/VOMI Verified 08/16/23 02:51 TING Home Meds Home Medications Medication Instructions Recorded Confirmed aspirin 81 mg tablet,delayed 81 mg PO QAM 08/06/18 08/16/23 release atorvastatin 20 mg tablet 20 mg PO QAM 08/06/18 08/16/23 cholecalciferol (vitamin D3) 25 1,000 unit PO QAM 08/06/18 08/16/23 mcg (1,000 unit) tablet (Vitamin D3) cyanocobalamin (vitamin B-12) 1,000 mcg PO QAM 08/06/18 08/16/23 1,000 mcg tablet,extended release (Vitamin B-12 ER) losartan 50 mg-hydrochlorothiazide 0.5 tab PO QAM 08/06/18 08/16/23 12.5 mg tablet metformin 500 mg tablet,extended 500 mg PO BID 08/06/18 08/16/23 release 24 hr pantoprazole 40 mg tablet,delayed 40 mg PO QAM 08/06/18 08/16/23 release acetaminophen 500 mg capsule 1,000 mg PO Q4H PRN Pain 03/27/20 08/16/23 tamsulosin 0.4 mg capsule 0.4 mg PO QAM 03/27/20 08/16/23 fluticasone propionate 50 2 spray intranasal DAILY 08/16/23 08/16/23 mcg/actuation nasal spray,suspension Results & Data (ED) Vital Signs Vital Signs - 24 hr 08/16/23 02:43 08/16/23 02:45 08/16/23 02:52 Temperature Temperature Source Pulse Rate 148 H 130 H 150 H Pulse Rate [Finger] Pulse Rate from SpO2 Sensor 132 H Pulse Rhythm [Finger] Pulse Strength [Finger] Respiratory Rate 7 L Respiratory Effort / Characteristics Mechanically Ventilated Respiratory Depth Blood Pressure 168/120 H 168/120 H Blood Pressure [Left Arm] Blood Pressure Mean 136 136 Blood Pressure Mean [Left Arm] Blood Pressure Position [Left Arm] Pulse Oximetry 100 96 Oxygen Delivery Method Mechanical Vent Ambu-Bag Fraction of Inspired Oxygen SaO2/FiO2 Ratio Sepsis New/Unexplained Change in Mental Status Yes Sepsis Action Taken by Nursing Physician Notified End-Tidal CO2 08/16/23 02:55 08/16/23 02:55 08/16/23 03:15 Temperature Temperature Source Pulse Rate 138 H 117 H 106 H Pulse Rate [Finger] Pulse Rate from SpO2 Sensor 136 H Pulse Rhythm [Finger] Pulse Strength [Finger] Respiratory Rate 9 L 16 12 Respiratory Effort / Characteristics Respiratory Depth Blood Pressure 185/123 H 163/124 H 148/80 H Blood Pressure [Left Arm] Blood Pressure Mean 143 133 102 Blood Pressure Mean [Left Arm] Blood Pressure Position [Left Arm] Pulse Oximetry 99 100 97 Oxygen Delivery Method Mechanical Vent Mechanical Vent Mechanical Vent Fraction of Inspired Oxygen SaO2/FiO2 Ratio Sepsis New/Unexplained Change in Mental Status Sepsis Action Taken by Nursing End-Tidal CO2 35 34 08/16/23 03:20 08/16/23 03:26 08/16/23 03:30 Temperature 35.2 C L 35.3 C L Temperature Source Mattson Cath ( Temp Sensing) Pulse Rate 89 Pulse Rate [Finger] 112 H Pulse Rate from SpO2 Sensor 76 Pulse Rhythm [Finger] Regular Pulse Strength [Finger] Normal Respiratory Rate 12 12 Respiratory Effort / Characteristics Respiratory Depth Normal Blood Pressure 130/81 Blood Pressure [Left Arm] 148/80 H Blood Pressure Mean 97 Blood Pressure Mean [Left Arm] 102 Blood Pressure Position [Left Arm] Lying Pulse Oximetry 98 97 Oxygen Delivery Method Mechanical Vent Mechanical Vent Mechanical Vent Fraction of Inspired Oxygen 40 SaO2/FiO2 Ratio 245 Sepsis New/Unexplained Change in Mental Status Sepsis Action Taken by Nursing End-Tidal CO2 37 08/16/23 03:45 08/16/23 04:00 Temperature 35.3 C L 35.3 C L Temperature Source Pulse Rate 79 82 Pulse Rate [Finger] Pulse Rate from SpO2 Sensor 77 74 Pulse Rhythm [Finger] Pulse Strength [Finger] Respiratory Rate 12 12 Respiratory Effort / Characteristics Respiratory Depth Blood Pressure 120/74 121/76 Blood Pressure [Left Arm] Blood Pressure Mean 89 91 Blood Pressure Mean [Left Arm] Blood Pressure Position [Left Arm] Pulse Oximetry 100 100 Oxygen Delivery Method Mechanical Vent Fraction of Inspired Oxygen SaO2/FiO2 Ratio Sepsis New/Unexplained Change in Mental Status Sepsis Action Taken by Nursing End-Tidal CO2 37 37 Laboratory Data 08/16/23 02:48 08/16/23 02:48 Lab Results 08/16/23 08/16/23 08/16/23 Range/Units 02:48 02:52 02:58 WBC 11.72 H (4.8-10.8) K/ul RBC 4.66 L (4.70-6.10) M/uL Hgb 13.6 L (14.0-18.0) g/dl POC Hgb 13.6 L 13.3 L (14.0-18.0) g/dl Hct 39.9 L (42.0-52.0) % POC Hct 40 L 39 L (42-52) % MCV 85.6 (80.0-100.0) fL MCH 29.2 (25.0-34.0) pg MCHC 34.1 (32.0-36.0) g/dL RDW Std Deviation 37.7 (36.4-46.3) fL RDW Coeff of Navjot 12.2 (11.5-14.5) % Plt Count 199 (130-400) K/uL MPV 10.0 (9.4-12.4) fL Immature Gran % (Auto) 1.1 % Neut % (Auto) 56.8 % Lymph % (Auto) 31.6 % Campbell % (Auto) 6.7 % Eos % (Auto) 3.2 % Baso % (Auto) 0.6 % Neut # (Auto) 6.66 H (1.40-6.50) K/uL Lymph # (Auto) 3.70 H (1.20-3.40) K/uL Campbell # (Auto) 0.79 H (0.11-0.59) K/uL Eos # (Auto) 0.37 (0.00-0.50) K/uL Baso # (Auto) 0.07 (0.00-0.20) K/uL Immature Gran # (Auto) 0.13 (0.01-0.20) K/uL PT 11.3 (9.0-12.0) Seconds INR 1.0 (0.9-1.1) POC pH 7.34 L (7.35-7.45) POC pCO2 46 (35-46) mmHg POC pO2 345 H (80-95) mmHg POC HCO3 25 H (19-24) asa/L POC Base Excess -1.0 (-9-1.8) asa/L POC ABG O2 Sat 100.0 H (90-95) % POC Sodium 138 136 (135-144) mmol/L Sodium 136 (136-145) mmol/L POC Potassium 3.2 L 3.4 (3.3-5.0) mmol/L Potassium 3.4 L (3.5-5.1) mmol/L POC Chloride 100 L (101-112) mmol/L Chloride 101 (98-107) mmol/L Carbon Dioxide 25 (21-32) mmol/L POC Total CO2 24 26 (24-31) mmol/L Anion Gap 10 (3-11) POC Anion Gap 18.0 (16-25) mmol/L POC BUN 18 (7-18) mg/dl BUN 19 (6-23) mg/dl Creatinine 1.17 (0.6-1.4) mg/dl POC Creatinine 1.2 (0.6-1.3) mg/dl Est Cr Clr Drug Dosing Not Reportable Est GFR ( Amer) 68.3 ml/min Est GFR (Non-Af Amer) 58.9 ml/min BUN/Creatinine Ratio 16.2 (10-20) Glucose 280 H (70-99(Fasting)) mg/dl POC Glucose (other) 297 H (70-99) mg/dl Calcium 8.9 (8.6-10.3) mg/dl POC Ioniz Calcium Kelly 1.19 (1.12-1.32) mmol/l Magnesium 1.7 (1.7-2.4) mg/dl Total Bilirubin 0.8 (0.2-1.0) mg/dl AST 24 (13-39) U/L ALT 15 (7-52) U/L Alkaline Phosphatase 91 (34-104) U/L Troponin I High Sens 4.9 (0-20) pg/ml B-Natriuretic Peptide 51 (0-100) pg/ml Total Protein 7.0 (6.0-8.3) gm/dl Albumin 4.4 (3.4-5.0) gm/dl Globulin 2.6 (2.5-4.0) gm/dl Albumin/Globulin Ratio 1.7 (0.9-2) Lipase 56 (11-82) U/L TSH 4.312 (0.300-4.500) uIu/ml Administered Medications Propofol (Diprivan) 1,000 mg in 100 mls @ 9.816 mls/hr IV .[id number] [facility], [facility]; Protocol Stop: 08/19/23 04:14 Last Admin: 08/16/23 04:11 Dose: 5 mcg/kg/min, 2.5 mls/hr Documented By: JOSEPH Co-signed By: WILFRED Discontinued Medications Miscellaneous (Rapid Sequence Induction Bag) Confirm Administered Dose 1 each N/A .STK-MED ONE Stop: 08/16/23 02:41 Last Admin: 08/16/23 04:12 Dose: 1 each Documented By: JOSEPH Miscellaneous (Stat Iv Infusion Titration Per Protocol) 1 each N/A NOW STA Stop: 08/16/23 04:09 Last Admin: 08/16/23 04:12 Dose: Not Given Documented By: JOSEPH Propofol (Propofol Iv Emulsion 10 Mg/Ml 100 Ml Vial) Confirm Administered Dose 1,000 mg IV .STK-MED ONE Stop: 08/16/23 02:50 Last Admin: 08/16/23 04:09 Dose: Not Given Documented By: JOSEPH Discharge Plan Visit Data Chief Complaint: Respiratory Arrest Stated Complaint: RESPIRATORY ARREST ED Provider: Trang Fischer Discharge Problem: Intracranial hemorrhage, Unresponsive, Endotracheally intubated Forms Stand Alone Forms: [facility] Prescriptions Prescriptions: No Action cyanocobalamin (vitamin B-12) [Vitamin B-12] 1,000 mcg Tablet Extended Release 1,000 mcg PO QAM atorvastatin 20 mg tablet 20 mg PO QAM aspirin 81 mg Tablet,Delayed Release (Dr/Ec) 81 mg PO QAM pantoprazole 40 mg tablet,delayed release (DR/EC) 40 mg PO QAM losartan-hydrochlorothiazide 50-12.5 mg tablet 0.5 tab PO QAM metformin 500 mg tablet extended release 24 hr 500 mg PO BID cholecalciferol (vitamin D3) [Vitamin D3] 1,000 unit Tablet 1,000 unit PO QAM tamsulosin 0.4 mg capsule 0.4 mg PO QAM acetaminophen 500 mg Capsule 1,000 mg PO Q4H PRN (Reason: Pain) fluticasone propionate [Flonase] 50 mcg/actuation [place],Suspension 2 spray INTRANASAL DAILY Rx Instructions: administer into each nostril Referrals Referrals: David Layton MD [Primary Care Provider] -
[2023-08-16 03:09] LABS: iSTAT Arterial Blood Gas HCO3 25 meg/L (19-24); iSTAT Arterial Blood Gas pCO2 46 mmHg (35-46); iSTAT Arterial Blood Gas pH 7.34 (7.35-7.45); iSTAT Arterial Blood Gas pO2 345 mmHg (80-95); iSTAT Carbon Dioxide 26 mmol/L (24-31); iSTAT Hematocrit 39 % (42-52); iSTAT Hemoglobin 13.3 g/dl (14.0-18.0); iSTAT Potassium 3.4 mmol/L (3.3-5.0); iSTAT Sodium 136 mmol/L (135-144)
[2023-08-16 03:16] LABS: Alanine Aminotransferase 15 U/L (7-52); Albumin Globulin Ratio 1.7 (0.9-2); Albumin Level 4.4 gm/dl (3.4-5.0); Alkaline Phosphatase 91 U/L (34-104); Anion Gap 10 (3-11); Aspartate Aminotransferase 24 U/L (13-39); BUN Creatinine Ratio 16.2 (10-20); Bilirubin,Total 0.8 mg/dl (0.2-1.0); Blood Urea Nitrogen 19 mg/dl (6-23); Calcium 8.9 mg/dl (8.6-10.3); Carbon Dioxide 25 mmol/L (21-32); Chloride 101 mmol/L (98-107); Est GFR (African American) 68.3 ml/min; Est GFR (Non-African American) 58.9 ml/min; Globulin 2.6 gm/dl (2.5-4.0); Glucose 280 mg/dl (70-99(Fasting)); Lipase 56 U/L (11-82); Magnesium 1.7 mg/dl (1.7-2.4); Potassium 3.4 mmol/L (3.5-5.1); Sodium 136 mmol/L (136-145)
[2023-08-16 03:23] LABS: Troponin I High Sensitivity 4.9 pg/ml (0-20)
[2023-08-16 03:30] LABS: Prothrombin Time 11.3 Seconds (9.0-12.0)
[2023-08-16 03:32] LABS: Thyroid Stimulating Hormone 4.312 uIu/ml (0.300-4.500)
[2023-08-16] MEDS ORDERED: PROPOFOL BOLUS FROM BAG IV PRN (04:08)
[2023-08-16] MEDS: PROPOFOL IV EMULSION 10 MG/ML 100 ML VIAL IV ONE (04:09)
[2023-08-16] MEDS: propofoL 1,000 MG/100 ML VIAL IV SCH (04:11)
[2023-08-16] MEDS: RAPID SEQUENCE INDUCTION BAG ONE (04:12)
[2023-08-16] MEDS: STAT IV Infusion **Titration per Protocol STA (04:12)
--- NOTE | 2023-08-16 04:28 | CT Scan Report ---
Exam(s): CT HEAD Without Contrast EXAM: CT Head Without Intravenous Contrast CLINICAL HISTORY: Reason for exam: ams. TECHNIQUE: Axial computed tomography images of the head/brain without intravenous contrast. CTDI is 36.55 mGy and DLP is 637.83 mGy-cm. Automated exposure control was utilized for the study. A dose lowering technique was utilized adhering to the principles of ALARA. COMPARISON: 11/01/2018. FINDINGS: Brain: Intraparenchymal hemorrhage involving the right cerebellum measuring approximately 3.3 x 2.5 x 2.8 cm with a volume of 11.5 cc. Small amount of intraparenchymal hemorrhage within the left cerebellar hemisphere. Diffuse sulcal effacement suggestive of intracranial edema. Ventricles: Large amount of intraventricular hemorrhage occupying bilateral lateral ventricle, third and fourth ventricle. Bones/joints: Unremarkable. No acute fracture. Soft tissues: See above. Sinuses: Unremarkable as visualized. No acute sinusitis. Mastoid air cells: Unremarkable as visualized. No mastoid effusion. IMPRESSION: 1. Large intraventricular hemorrhage as described with diffuse sulcal effacement suggestive of edema. 2. Right cerebellar intraparenchymal hemorrhage with suggestive volume of 11.5 cc, difficult to adequately distinguish from fourth ventricular hemorrhage. 3. Small amount of left cerebellar intraparenchymal hemorrhage. Communications: Call Doctor Other Electronically signed by: Elizabeth Dahl MD 08/16/23 04:27 AM
--- NOTE | 2023-08-16 04:33 | History & Physical Report ---
Date of Service August 16, 2023 Assessment & Plan (1) Intracranial hemorrhage: Plan: 77-year-old male with past medical history significant for type 2 diabetes, CKD stage III, hyperlipidemia, hypertension, GERD, degeneration of lumbosacral disc, presents with unresponsiveness and found to have a large intracranial bleed. Apparently patient was doing fine earlier today. He went to sleep fine. Woke up around 2 AM with the nausea vomiting and diarrhea. When went to check on him he complained of severe pain in the back of the head and was diaphoretic and then became unresponsive. EMS was called. For EMS he was minimally responsive but had gag reflex. EMS inserted oral airway and assisted with [id number] ventilation. Seems he was bradycardic in the 40s. In the ER he was intubated. CT head showing "large intraventricular hemorrhage with diffuse sulcal effacement suggesting of edema. Right cerebellar intraparenchymal hemorrhage. Difficult to adequately distinction from fourth ventricular hemorrhage. Small amount of left cerebellar intraparenchymal hemorrhage". ER talk to the [facility] neurologist and images were reviewed and thought he was nonsurvivable. and family in the room. was notified of the findings. In case of cardiac arrest no plans for CPR as per but want to continue mechanical ventilation until her son and daughter arrives. As per no recent fevers. No complaints of any chest pains. No complaints of headache prior to this event.No injury. Past medical history. As mentioned above Intracranial hemorrhage CT head:1. Large intraventricular hemorrhage as described with diffuse sulcal effacement suggestive of edema. 2. Right cerebellar intraparenchymal hemorrhage with suggestive volume of 11.5 cc, difficult to adequately distinguish from fourth ventricular hemorrhage. 3. Small amount of left cerebellar intraparenchymal hemorrhage. Currently s/p intubated and sedated ER talked to [facility] neurologist and thought he was not survivable and family in the room and was notified of the findings want the patient to be DNR now but to keep on mechanical ventilation until his son and daughter arrives Supportive care Will admit him to ICU DVT prophylaxis SCDs CODE STATUS DNR History of Present Illness Chief Complaint: Large intracranial bleed Primary Care Provider: David Layton MD 77-year-old male with past medical history significant for type 2 diabetes, CKD stage III, hyperlipidemia, hypertension, GERD, degeneration of lumbosacral disc, presents with unresponsiveness and found to have a large intracranial bleed. Apparently patient was doing fine earlier today. He went to sleep fine. Woke up around 2 AM with the nausea vomiting and diarrhea. When went to check on him he complained of severe pain in the back of the head and was diaphoretic and then became unresponsive. EMS was called. For EMS he was minimally responsive but had gag reflex. EMS inserted oral airway and assisted with [id number] ventilation. Seems he was bradycardic in the 40s. In the ER he was intubated. CT head showing "large intraventricular hemorrhage with diffuse sulcal effacement suggesting of edema. Right cerebellar intraparenchymal hemorrhage. Difficult to adequately distinction from fourth ventricular hemorrhage. Small amount of left cerebellar intraparenchymal hemorrhage". [facility] and images were reviewed and thought he was nonsurvivable. and family in the room. was notified of the findings. In case of cardiac arrest no plans for CPR as per but want to continue mechanical ventilation until her son and daughter arrives. As per no recent fevers. No complaints of any chest pains. No complaints of headache prior to this event.No injury. Past medical history. As mentioned above Past surgical history. Colonoscopy, EGD, injection of lumbosacral spine, repair of inguinal hernia, laparoscopic repair of recurrent inguinal hernia. Social history. . No smoking. Alcohol 1-2 drinks in the evenings. No drug use. Family history. Mother had cancer. Father had heart disorder and diabetes Allergies Allergy/AdvReac Type Severity Reaction Status Date / Time lisinopril AdvReac Intermediate Cough Verified 08/16/23 02:51 oxycodone AdvReac Intermediate NAUSEA/VOMI Verified 08/16/23 02:51 TING Home Medications Medication Instructions Recorded Confirmed Type aspirin 81 mg tablet,delayed 81 mg PO QAM 08/06/18 08/16/23 History release atorvastatin 20 mg tablet 20 mg PO QAM 08/06/18 08/16/23 History cholecalciferol (vitamin D3) 25 1,000 unit PO QAM 08/06/18 08/16/23 History mcg (1,000 unit) tablet (Vitamin D3) cyanocobalamin (vitamin B-12) 1,000 mcg PO QAM 08/06/18 08/16/23 History 1,000 mcg tablet,extended release (Vitamin B-12 ER) losartan 50 mg-hydrochlorothiazide 0.5 tab PO QAM 08/06/18 08/16/23 History 12.5 mg tablet metformin 500 mg tablet,extended 500 mg PO BID 08/06/18 08/16/23 History release 24 hr pantoprazole 40 mg tablet,delayed 40 mg PO QAM 08/06/18 08/16/23 History release acetaminophen 500 mg capsule 1,000 mg PO Q4H PRN Pain 03/27/20 08/16/23 History tamsulosin 0.4 mg capsule 0.4 mg PO QAM 03/27/20 08/16/23 History fluticasone propionate 50 2 spray intranasal DAILY 08/16/23 08/16/23 History mcg/actuation nasal spray,suspension Past Med/Surg History Medical History Diabetes GERD (gastroesophageal reflux disease) Hyperlipidemia Hypertension Lumbosacral disc disease Surgical History History of arthroscopy LEFT SHOULDER History of colonoscopy History of esophagogastroduodenoscopy (EGD) History of tooth extraction Hx of hernia repair x2 S/P cataract extraction right Family History Father Diabetes Coronary heart disease Social History Smoking Status: Unknown if ever smoked Second Hand Exposure: No; Do You Dip or Chew Tobacco: No; Hx Alcohol Use: Yes Alcohol type: beer Hx Substance Use: No Preferred Language: Botswanan Communication Ability: Effective Case Planner Required: No Beliefs That Will Affect Care: None Current Living Situation: Spouse Feels Safe at Home: Yes Assistive Devices: Glasses Review of Systems Review of Systems: Unobtainable due to endotracheal tube Physical Exam Physical Exam: General- s/p intubated. Head- atraumatic Eyes- pupils dilated and fixed and non reactive Neck- no JVD. Lungs- clear to auscultation no wheezing or crackles. Heart- regular rhythm; no murmur, no gallop. Abdomen- sluggish bowel sounds, soft, no distension. Extremities- no pretibial edema, no erythema seen. Neuro- s/p intubated Results & Data Results & Data Vital Signs (Past 12 Hours) Vital Signs Temp Pulse Pulse Resp BP BP Pulse Ox 08/16/23 04:15 35.3 C L 96 H 14 140/84 100 08/16/23 04:00 35.3 C L 82 12 121/76 100 08/16/23 03:45 35.3 C L 79 12 120/74 100 08/16/23 03:30 35.3 C L 89 12 130/81 97 08/16/23 03:26 08/16/23 03:20 35.2 C L 112 H 12 148/80 H 98 08/16/23 03:15 106 H 12 148/80 H 97 08/16/23 02:55 117 H 16 163/124 H 100 08/16/23 02:55 138 H 9 L 185/123 H 99 08/16/23 02:52 150 H 168/120 H 96 08/16/23 02:45 130 H 7 L 168/120 H 100 08/16/23 02:43 148 H O2 Del Method FiO2 08/16/23 04:15 Mechanical Vent 08/16/23 04:00 08/16/23 03:45 Mechanical Vent 08/16/23 03:30 Mechanical Vent 08/16/23 03:26 Mechanical Vent 08/16/23 03:20 Mechanical Vent 40 08/16/23 03:15 Mechanical Vent 08/16/23 02:55 Mechanical Vent 08/16/23 02:55 Mechanical Vent 08/16/23 02:52 Ambu-Bag 08/16/23 02:45 Mechanical Vent 08/16/23 02:43 Diagnostic Findings Laboratory Results WBC 11.72 K/ul (4.8-10.8) H 08/16/23 02:48 RBC 4.66 M/uL (4.70-6.10) L 08/16/23 02:48 Hgb 13.6 g/dl (14.0-18.0) L 08/16/23 02:48 POC Hgb 13.3 g/dl (14.0-18.0) L 08/16/23 02:58 Hct 39.9 % (42.0-52.0) L 08/16/23 02:48 POC Hct 39 % (42-52) L 08/16/23 02:58 MCV 85.6 fL (80.0-100.0) 08/16/23 02:48 MCH 29.2 pg (25.0-34.0) 08/16/23 02:48 MCHC 34.1 g/dL (32.0-36.0) 08/16/23 02:48 RDW Std Deviation 37.7 fL (36.4-46.3) 08/16/23 02:48 RDW Coeff of Navjot 12.2 % (11.5-14.5) 08/16/23 02:48 Plt Count 199 K/uL (130-400) 08/16/23 02:48 MPV 10.0 fL (9.4-12.4) 08/16/23 02:48 Immature Gran % (Auto) 1.1 % 08/16/23 02:48 Neut % (Auto) 56.8 % 08/16/23 02:48 Lymph % (Auto) 31.6 % 08/16/23 02:48 [place] % (Auto) 6.7 % 08/16/23 02:48 Eos % (Auto) 3.2 % 08/16/23 02:48 Baso % (Auto) 0.6 % 08/16/23 02:48 Neut # (Auto) 6.66 K/uL (1.40-6.50) H 08/16/23 02:48 Lymph # (Auto) 3.70 K/uL (1.20-3.40) H 08/16/23 02:48 [place] # (Auto) 0.79 K/uL (0.11-0.59) H 08/16/23 02:48 Eos # (Auto) 0.37 K/uL (0.00-0.50) 08/16/23 02:48 Baso # (Auto) 0.07 K/uL (0.00-0.20) 08/16/23 02:48 Immature Gran # (Auto) 0.13 K/uL (0.01-0.20) 08/16/23 02:48 PT 11.3 Seconds (9.0-12.0) 08/16/23 02:48 INR 1.0 (0.9-1.1) 08/16/23 02:48 POC pH 7.34 (7.35-7.45) L 08/16/23 02:58 POC pCO2 46 mmHg (35-46) 08/16/23 02:58 POC pO2 345 mmHg (80-95) H 08/16/23 02:58 POC HCO3 25 asa/L (19-24) H 08/16/23 02:58 POC Total CO2 26 mmol/L (24-31) 08/16/23 02:58 POC Base Excess -1.0 asa/L (-9-1.8) 08/16/23 02:58 POC ABG O2 Sat 100.0 % (90-95) H 08/16/23 02:58 POC Sodium 136 mmol/L (135-144) 08/16/23 02:58 Sodium 136 mmol/L (136-145) 08/16/23 02:48 POC Potassium 3.4 mmol/L (3.3-5.0) 08/16/23 02:58 Potassium 3.4 mmol/L (3.5-5.1) L 08/16/23 02:48 POC Chloride 100 mmol/L (101-112) L 08/16/23 02:52 Chloride 101 mmol/L (98-107) 08/16/23 02:48 Carbon Dioxide 25 mmol/L (21-32) 08/16/23 02:48 POC Total CO2 24 mmol/L (24-31) 08/16/23 02:52 Anion Gap 10 (3-11) 08/16/23 02:48 POC Anion Gap 18.0 mmol/L (16-25) 08/16/23 02:52 POC BUN 18 mg/dl (7-18) 08/16/23 02:52 BUN 19 mg/dl (6-23) 08/16/23 02:48 Creatinine 1.17 mg/dl (0.6-1.4) 08/16/23 02:48 POC Creatinine 1.2 mg/dl (0.6-1.3) 08/16/23 02:52 Est Cr Clr Drug Dosing Not Reportable 08/16/23 02:48 Est GFR ( Amer) 68.3 ml/min 08/16/23 02:48 Est GFR (Non-Af Amer) 58.9 ml/min 08/16/23 02:48 BUN/Creatinine Ratio 16.2 (10-20) 08/16/23 02:48 Glucose 280 mg/dl (70-99(Fasting)) H 08/16/23 02:48 POC Glucose (other) 297 mg/dl (70-99) H 08/16/23 02:52 Calcium 8.9 mg/dl (8.6-10.3) 08/16/23 02:48 POC Ioniz Calcium Kelly 1.19 mmol/l (1.12-1.32) 08/16/23 02:52 Magnesium 1.7 mg/dl (1.7-2.4) 08/16/23 02:48 Total Bilirubin 0.8 mg/dl (0.2-1.0) 08/16/23 02:48 AST 24 U/L (13-39) 08/16/23 02:48 ALT 15 U/L (7-52) 08/16/23 02:48 Alkaline Phosphatase 91 U/L (34-104) 08/16/23 02:48 Troponin I High Sens 4.9 pg/ml (0-20) 08/16/23 02:48 B-Natriuretic Peptide 51 pg/ml (0-100) 08/16/23 02:48 Total Protein 7.0 gm/dl (6.0-8.3) 08/16/23 02:48 Albumin 4.4 gm/dl (3.4-5.0) 08/16/23 02:48 Globulin 2.6 gm/dl (2.5-4.0) 08/16/23 02:48 Albumin/Globulin Ratio 1.7 (0.9-2) 08/16/23 02:48 Lipase 56 U/L (11-82) 08/16/23 02:48 TSH 4.312 uIu/ml (0.300-4.500) 08/16/23 02:[address] 08/16/23 02:44 CR Exam(s): CT HEAD Without Contrast EXAM: CT Head Without Intravenous Contrast CLINICAL HISTORY: Reason for exam: ams. TECHNIQUE: Axial computed tomography images of the head/brain without intravenous contrast. CTDI is 36.55 mGy and DLP is 637.83 mGy-cm. Automated exposure control was utilized for the study. A dose lowering technique was utilized adhering to the principles of ALARA. COMPARISON: 11/01/2018. FINDINGS: Brain: Intraparenchymal hemorrhage involving the right cerebellum measuring approximately 3.3 x 2.5 x 2.8 cm with a volume of 11.5 cc. Small amount of intraparenchymal hemorrhage within the left cerebellar hemisphere. Diffuse sulcal effacement suggestive of intracranial edema. Ventricles: Large amount of intraventricular hemorrhage occupying bilateral lateral ventricle, third and fourth ventricle. Bones/joints: Unremarkable. No acute fracture. Soft tissues: See above. Sinuses: Unremarkable as visualized. No acute sinusitis. Mastoid air cells: Unremarkable as visualized. No mastoid effusion. IMPRESSION: 1. Large intraventricular hemorrhage as described with diffuse sulcal effacement suggestive of edema. 2. Right cerebellar intraparenchymal hemorrhage with suggestive volume of 11.5 cc, difficult to adequately distinguish from fourth ventricular hemorrhage. 3. Small amount of left cerebellar intraparenchymal hemorrhage. Communications: Call Doctor Other Electronically signed by: Elizabeth Dahl MD 08/16/23 04:27 AM ECG Additional Comments: ECG. Atrial fibrillation with rapid ventricular response rate of 137. ST depression anterolateral leads Code Status & VTE Plan VTE Prophylaxis Plan VTE Prophylaxis will be ordered: Yes
[2023-08-16] MEDS ORDERED: LORazepam 2 MG in SYRINGE 1 ML IV PRN ×2 (05:13→18:16)
[2023-08-16] MEDS: SODIUM CHLORIDE 0.9% 1,000 ML IV SCH (05:42)
--- NOTE | 2023-08-16 05:46 | Critical Care Consultation ---
Date of Consultation August 16, 2023 Assessment & Plan (1) Intracranial hemorrhage: Patient found to have large intraventricular hemorrhage with diffuse sulcal and effacement suggestive of edema and right cerebellar intraparenchymal hemorrhage on CT imaging. [facility] neurology reviewed imaging and per their recommendations, bleed described as nonsurvivable with no normal brainstem noted on CT scan and hydrocephalus concerning for beginnings of herniation. Patient's stated that he would not want aggressive measures with terminal diagnosis and he is now DNR. Patient does have a son that lives in [facility] and a daughter that lives in [place] that are on their way to the bedside, and they would like to postpone palliative withdrawal until all family has arrived. They have been made aware that the patient could likely herniate resulting in in the meantime. He was placed on propofol to provide comfort. Patient family denied further medical management and will currently proceed as no escalation of care. He is admitted to ICU for further management at this time. (2) Endotracheally intubated: Continue with mechanical ventilation while awaiting other family members with expectation to palliatively extubate once family is ready. ABG 7.3 //25 Weaning vent setting as tolerated. Continuous pulse ox monitor CRITICAL CARE TIME - I have personally spent 43 minutes of critical care time in the direct management of this patient. This is a life/limb threatening event. This includes time spent evaluating patient, direct bedside care, chart review, placing orders, interpretation of diagnostic studies, discussion with consultants, phuong tom, and family members, as well as other required patient management activities. This time is exclusive of all separately billable procedures, and teaching time and separate from and in addition to any other critical care service time. Supervising Physician Co-Signing Physician Notes Patient seen and examined. EMR reviewed. Discussed with critical care NICOLETTE and with family at bedside critical care nurse and on multidisciplinary rounds. 77-year-old male admitted with large intraventricular hemorrhage. He appears to be clinically declining and is gone from being tachycardic to borderline bradycardic with elevated blood pressures. Think he is likely dealing with increased intracranial pressure and potentially imminent herniation. Family is aware. Reaffirmed DNR/DNI status and their desire to not pursue any interventions currently. Awaiting arrival of 1 son and a daughter who should be here around noon. Family is aware that the patient may not last until noon. Condolences offered to the family. Advised them were here for emotional support. Will plan on transition to full comfort measures and terminal extubation once family arrives History of Present Illness Attending Physician: Mickey Pereyra MD History of Present Illness Patient is a 77-year-old male with past medical history of HTN, GERD, HLD, BPH, lumbar stenosis who presented to the emergency department with altered mental status and respiratory arrest. reports that earlier this evening patient had headache with nausea and dizziness. She awoke to him vomiting around 2 AM this morning, and he shortly thereafter became unresponsive. When EMS arrived patient was noted to be minimally responsive and oral airway was inserted. Patient was intubated on arrival to the emergency department. He underwent CT head which revealed large intraventricular hemorrhage and right cerebellar intraparenchymal hemorrhage. He is not on a anticoagulant and coags within normal limits. [facility] neurology reported that the bleed is nonsurvivable. Per discussion with family, they are waiting on other family members to arrive. There is a daughter in [place] and a son approximately 2 hours away that would like to be at the patient's bedside before terminal extubation. At this time patient is DNR in the event of cardiac arrest and per discussion with the patient's , no further medical management was wanted at this time and representation of patient's wishes. In the meantime patient is being admitted to ICU with expectation of palliative withdrawal once family has all arrived. Allergies Allergy/AdvReac Type Severity Reaction Status Date / Time lisinopril AdvReac Intermediate Cough Verified 08/16/23 02:51 oxycodone AdvReac Intermediate NAUSEA/VOMI Verified 08/16/23 02:51 TING Home Medications Medication Instructions Recorded Confirmed Type aspirin 81 mg tablet,delayed 81 mg PO QAM 08/06/18 08/16/23 History release atorvastatin 20 mg tablet 20 mg PO QAM 08/06/18 08/16/23 History cholecalciferol (vitamin D3) 25 1,000 unit PO QAM 08/06/18 08/16/23 History mcg (1,000 unit) tablet (Vitamin D3) cyanocobalamin (vitamin B-12) 1,000 mcg PO QAM 08/06/18 08/16/23 History 1,000 mcg tablet,extended release (Vitamin B-12 ER) losartan 50 mg-hydrochlorothiazide 0.5 tab PO QAM 08/06/18 08/16/23 History 12.5 mg tablet metformin 500 mg tablet,extended 500 mg PO BID 08/06/18 08/16/23 History release 24 hr pantoprazole 40 mg tablet,delayed 40 mg PO QAM 08/06/18 08/16/23 History release acetaminophen 500 mg capsule 1,000 mg PO Q4H PRN Pain 03/27/20 08/16/23 History tamsulosin 0.4 mg capsule 0.4 mg PO QAM 03/27/20 08/16/23 History fluticasone propionate 50 2 spray intranasal DAILY 08/16/23 08/16/23 History mcg/actuation nasal spray,suspension Patient History Medical History Diabetes GERD (gastroesophageal reflux disease) Hyperlipidemia Hypertension Lumbosacral disc disease Surgical History History of arthroscopy LEFT SHOULDER History of colonoscopy History of esophagogastroduodenoscopy (EGD) History of tooth extraction Hx of hernia repair x2 S/P cataract extraction right Family History Father Diabetes Coronary heart disease Social History Smoking Status: Unknown if ever smoked Second Hand Exposure: No; Do You Dip or Chew Tobacco: No; Hx Alcohol Use: Yes Alcohol type: beer Hx Substance Use: No Preferred Language: Moroccan Communication Ability: Effective Certified Tower Climber Required: No Beliefs That Will Affect Care: None Current Living Situation: Spouse Feels Safe at Home: Yes Assistive Devices: Glasses Review of Systems Review of Systems: Unobtainable due to cognitive status Physical Exam Constitutional: + mechanically ventilated; no acute dist ress Eyes: Pupils dilated and fixed ENMT: external ear and nose normal, oropharynx normal Neck: trachea midline, no thyromegaly Respiratory: normal respiratory effort, lungs clear to auscultation Cardiovascular: RRR, no murmur, no edema Heart Sounds: normal S1 and normal S2 Extremities: no edema Gastrointestinal (Abdomen): normal bowel sounds, soft, nontender, no hepatosplenomegaly Musculoskeletal: No musculoskeletal deformities noted on exam. Exam limited due to cognitive status Skin: no rashes, warm and dry Neurologic: Pupils fixed and dilated. Cough, gag, corneals intact. Patient does appear to nonlocalized patient will stimuli. He does not follow commands or have purposeful movement Psychiatric: Unable to assess due to cognitive status Genitourinary: Indwelling Mattson catheter present Results & Data Results & Data Vital Signs (Past 12 Hours) Vital Signs Temp Pulse Pulse Resp BP BP Pulse Ox 08/16/23 04:30 35.4 C L 112 H 12 125/78 100 08/16/23 04:15 35.3 C L 96 H 14 140/84 100 08/16/23 04:00 35.3 C L 82 12 121/76 100 08/16/23 03:45 35.3 C L 79 12 120/74 100 08/16/23 03:30 35.3 C L 89 12 130/81 97 08/16/23 03:26 08/16/23 03:20 35.2 C L 112 H 12 148/80 H 98 08/16/23 03:15 106 H 12 148/80 H 97 08/16/23 02:55 117 H 16 163/124 H 100 08/16/23 02:55 138 H 12 185/123 H 99 08/16/23 02:52 150 H 168/120 H 96 08/16/23 02:45 130 H 12 168/120 H 100 08/16/23 02:43 148 H O2 Del Method FiO2 08/16/23 04:30 Mechanical Vent 08/16/23 04:15 Mechanical Vent 08/16/23 04:00 08/16/23 03:45 Mechanical Vent 08/16/23 03:30 Mechanical Vent 08/16/23 03:26 Mechanical Vent 08/16/23 03:20 Mechanical Vent 40 08/16/23 03:15 Mechanical Vent 08/16/23 02:55 Mechanical Vent 08/16/23 02:55 Mechanical Vent 08/16/23 02:52 Ambu-Bag 08/16/23 02:45 Mechanical Vent 08/16/23 02:43 Diagnostic Findings Exam(s): CT HEAD Without Contrast EXAM: CT Head Without Intravenous Contrast CLINICAL HISTORY: Reason for exam: ams. TECHNIQUE: Axial computed tomography images of the head/brain without intravenous contrast. CTDI is 36.55 mGy and DLP is 637.83 mGy-cm. Automated exposure control was utilized for the study. A dose lowering technique was utilized adhering to the principles of ALARA. COMPARISON: 11/01/2018. FINDINGS: Brain: Intraparenchymal hemorrhage involving the right cerebellum measuring approximately 3.3 x 2.5 x 2.8 cm with a volume of 11.5 cc. Small amount of intraparenchymal hemorrhage within the left cerebellar hemisphere. Diffuse sulcal effacement suggestive of intracranial edema. Ventricles: Large amount of intraventricular hemorrhage occupying bilateral lateral ventricle, third and fourth ventricle. Bones/joints: Unremarkable. No acute fracture. Soft tissues: See above. Sinuses: Unremarkable as visualized. No acute sinusitis. Mastoid air cells: Unremarkable as visualized. No mastoid effusion. IMPRESSION: 1. Large intraventricular hemorrhage as described with diffuse sulcal effacement suggestive of edema. 2. Right cerebellar intraparenchymal hemorrhage with suggestive volume of 11.5 cc, difficult to adequately distinguish from fourth ventricular hemorrhage. 3. Small amount of left cerebellar intraparenchymal hemorrhage. Communications: Call Doctor Other Electronically signed by: Elizabeth Dahl MD 08/16/23 04:27 AM Coding Level of Care Code 49576 CRITICAL CARE 1ST 30-74M Diagnoses Intracranial hemorrhage I62.9 Endotracheally intubated Z97.8
--- NOTE | 2023-08-16 06:59 | XRay Report ---
XR chest 1V portable CLINICAL HISTORY: intubation TECHNIQUE: Single frontal radiograph of the chest was obtained. Comparison: Comparison is made to chest radiograph 11/04/2020 FINDINGS: Endotracheal tube terminates 6.3 cm from the hyacinth. The cardiomediastinal silhouette is normal. Lung s are underinflated but clear. No evidence of pleural effusion or pneumothorax. IMPRESSION: No acute chest disease. ACT 112: Negative or not required by law. Electronically signed by: Koko Mccann M.D. 08/16/2023 6:58 AM
[2023-08-16] MEDS: ICU Protocol for HYPERglycemia SCH (08:54)
--- NOTE | 2023-08-16 11:01 | Communication Note ---
Date of Service: August 16, 2023 Patient admitted to the ICU after large intracranial bleeding. He is mechanically ventilated and sedated. He appears comfortable. Family is at bedside. Plan for palliative extubation later today. Transition to comfort care after extubation.
--- NOTE | 2023-08-16 11:48 | Electrocardiogram Report ---
Test Reason : Blood Pressure : / mmHG Vent. Rate : 137 BPM Atrial Rate : 000 BPM P-R Int : 000 ms QRS Dur : 088 ms QT Int : 286 ms P-R-T Axes : 000 053 236 degrees QTc Int : 431 ms Atrial fibrillation with rapid ventricular response Abnormal ECG When compared with ECG of 04-NOV-2020 14:12, Atrial fibrillation has replaced Sinus rhythm Vent. rate has increased BY 87 BPM Non-specific change in ST segment in Inferior leads ST now depressed in Anterolateral leads Nonspecific T wave abnormality now evident in Lateral leads Confirmed by Oseas Mckeon ([id number]) on 08/16/2023 11:48:23 AM Referred By: REFERRED SELF Confirmed By:Oseas Mckeon
[2023-08-16] MEDS ORDERED: SUCCINYLCHOLINE CHLORIDE 20 MG/ML 10 ML VIAL IV ONE (13:26)
[2023-08-16] MEDS ORDERED: ETOMIDATE 2 MG/ML 20 ML VIAL IV ONE (13:26)
--- OUTSIDE RECORDS SUMMARY | 2023-08-16 15:29 | External Medical Summary ---
Author Name Unknown Address Unknown Organization [id number]:LABORATORY [facility] [place] - [address] [facility] [address] Laboratory Report Ordering Provider Test Date Status ZIGGY ALEGRIA 03/02/2023 14:50:01 Final Observation Date Value Abnormality Reference (Units ) Status BUN 03/02/2023 14:50:01 17 6-20 (mg/dL) Final Creatinine 03/02/2023 14:50:01 1.2 0.6-1.2 (mg/dL) Final Glomerular filtration rate/1.73 sq M.predicted [Volume Rate/Area] in Serum, Plasma or Blood by Creatinine-based formula (CKD-EPI) 03/02/2023 14:50:01 63 >=60 (mL/min) Final eGFR is calculated based on the CKD-EPI 2020 equation SODIUM 03/02/2023 14:50:01 141 135-146 (m mol/L) Final Potassium 03/02/2023 14:50:01 4.2 3.5-5.1 (m mol/L) Final Cl 03/02/2023 14:50:01 99 98-107 (mm ol/L) Final CO2 03/02/2023 14:50:01 30 22-32 (mmo l/L) Final Anion gap 03/02/2023 14:50:01 12 7-15 (mmol /L) Final Glucose 03/02/2023 14:50:01 114 70-120 (mg /dL) Final Albumin 03/02/2023 14:50:01 4.7 3.8-5.0 (g /dL) Final AST (Aspartate aminotransferase) 03/02/2023 14:50:01 15 10-50 (U/L) Final Result may be falsely elevat ed due to hemolysis. Alk Phos 03/02/2023 14:50:01 101 35-130 (U/ L) Final Bilirubin, Total 03/02/2023 14:50:01 0.9 <=1 .2 (mg/dL) Final Calcium 03/02/2023 14:50:01 9.8 8.4-10.2 ( mg/dL) Final Protein 03/02/2023 14:50:01 6.9 6.0-8.3 (g /dL) Final ALT (Alanine aminotransferase) 03/02/2023 14:50:01 19 10-50 (U/L) Final Performing Location LABORATORY [facility] [place] - [address] [facility] [address]
--- OUTSIDE RECORDS SUMMARY | 2023-08-16 15:29 | External Medical Summary ---
Author Name Unknown Address Unknown Organization [id number]:LABORATORY [facility] - [address] [place] [address] Laboratory Report Ordering Provider Test Date Status ZIGGY ALEGRIA 03/02/2023 14:50:01 Final Observation Date Value Abnormality Reference (Units ) Status LDL, (direct) 03/02/2023 14:50:01 71 <=129 (mg/dL) Final LDL Cholesterol Reference Ra nges (mg/dL):
<70 Target level for high risk ASCVD patient
<100 Optimal for general population
100-129 Near optimal for general population
130-159 Borderline high
160-189 High
>=190 Very high Performing Location LABORATORY [facility] - [address] [place] [address]
--- OUTSIDE RECORDS SUMMARY | 2023-08-16 15:29 | External Medical Summary ---
Author Name Unknown Address Unknown Organization [id number]:LABORATORY [facility] [place] - [address] [facility] [address] Laboratory Report Ordering Provider Test Date Status ZIGGY ALEGRIA 03/02/2023 14:50:01 Final Observation Date Value Abnormality Reference (Units ) Status HbA1C 03/02/2023 14:50:01 7.6 Above high normal 4. 0-5.6 (%) Final The use of HbA1c to monitor glycemic status is based on normal hemoglobin and HbA composition. This test should not be used in patients with abnormal hemoglobin that affects the half life of the red blood cell or the in vivo glycation rates. Glucose, estimated average 03/02/2023 14:50:01 171 Above high normal <126 (mg/dL) Melvin fam Performing Location LABORATORY [facility] [place] - [address] [facility] [address] [facility] [address]
--- OUTSIDE RECORDS SUMMARY | 2023-08-16 15:29 | External Medical Summary ---
Author Name Unknown Address Unknown Organization [id number]:[facility] [place] - [address] [place] [id number] Laboratory Report Ordering Provider Test Date Status ZIGGY ALEGRIA 03/02/2023 14:46:12 Final Observation Date Value Abnormality Reference (Units) Status Bacteria identified in Specimen by Culture 03/02/2023 14:46:12 No significant growth Final Test: Culture, Urine, Quanti tative
Specimen Source: Urine, Clean Catch
Specimen Type: Urine
Specimen Date: 03/02/2023 2:46 PM
Result Date: 03/03/2023 3:41 PM
Result Status: Final result
Resulting Lab: [facility] [place]
[address] [facility]

CULTURE

No significant growth

null Performing Location LAB[facility]ORY [facility] [place] - [address] [facility] [address]
--- OUTSIDE RECORDS SUMMARY | 2023-08-16 15:29 | External Medical Summary | Summary of Care ---
Author Name Unknown Organization [facility] Address [address] [place] [address] Phone [phone] Care Team Providers Care Area Field Person Name Role Phone Airam Layton MD Primary Care Provider [phone] Reason for Visit * Reason Comments eRx-Medication Refill Encounter Details Date Type Department Care Team (Late st Contact Info) Description 05/10/2023 [facility]ill Pharm[facility] Call [facility] [phone] [facility] [address] Airam Layton MD [address], [place] [phone] HTN, goal below 130/80 Allergies Active Allergy Reactions Criticality Noted Date Comments Lisinopril Cough Low 07/29/2014 Oxycodone Nausea/vomiting 07/18/2011 documented as of this encounter (statuses as of 05/10/2023) Medications Medication Sig Dispensed Refills Start Date End Date Status ASPIRIN EC LOW STRENGTH TBEC 81 MG OR one by mouth daily 34 5 4 Active VITAMIN D 1000 UNITS PO CAPS Take by mouth daily. 0 Active vitamin b 12 (CYANOCOBALAMIN) 1000 MCG TABSIndications:B 12 deficiency Take 1 Tab by mouth daily. 100 Tab 5 8 Active Acetaminophen 500 MG Oral Tablet Take 2 Tablets by mouth every 4 hours as needed. 0 Active OneTouch UltraSoft LancetsIndication s:Type 2 diabetes mellitus with hemoglobin A1c goal of less than 8.0% ([facility]) Use up to two times a day as directed 100 Each 3 2 Active OneTouch Ultra Blue In Vitro Strip (Glucose Blood)Indications :Type 2 diabetes mellitus with hemoglobin A1c goal of less than 8.0% (HCC) UP TO TWO TIMES DAILY OR DIRECTED 100 Strip 3 2 Active Fluticasone Propionate 50 MCG/ACT Nasal SuspensionIndicat ions:Viral URI with cough Administer into each nostril 2 Sprays in the morning. 16 g 1 2 Active metFORMIN HCl ER 500 MG Oral Tablet Extended Release 24 Hour (Glucophage XR)Indications:Ty pe 2 diabetes mellitus with hemoglobin A1c goal of less than 8.0% (HCC) TAKE 1 TABLET BY MOUTH TWICE A DAY 180 Tablet 2 3 Active Pantoprazole Sodium 40 MG Oral Tablet Delayed Release (Protonix)Indicat ions:Gastroesopha geal reflux disease, unspecified whether esophagitis present TAKE 1 TABLET BY MOUTH DAILY 180 Tablet 2 3 Active Atorvastatin Calcium 20 MG Oral Tablet (Lipitor)Indicati ons:Type 2 diabetes mellitus with hemoglobin A1c goal of less than 8.0% (HCC),Mixed dyslipidemia TAKE 1 TABLET BY MOUTH EVERY DAY IN THE MORNING 90 Tablet 1 3 Active Tamsulosin HCl 0.4 MG Oral Capsule (Flomax)Indicatio ns:Obstructive uropathy Take 1 Capsule by mouth in the morning. Occasionally takes 1 additional capsule daily if needed.. 100 Capsule 3 3 Active Losartan Potassium-HCTZ 50-12.5 MG Oral Tablet (Hyzaar)Indicatio ns:HTN, goal below 130/80 TAKE 1/2 TABLET BY MOUTH EVERY DAY 45 Tablet 3 3 Active Losartan Potassium-HCTZ 50-12.5 MG Oral Tablet (Hyzaar)Indicatio ns:HTN, goal below 130/80 TAKE 1/2 TABLET BY MOUTH ONCE DAILY 45 Tablet 3 2 05/10/20 23 Discontinued documented as of this encounter (statuses as of 05/10/2023) Active Problems Problem Noted Date Diagnosed Date Hx of actinic keratosis 02/14/2022 Chronic kidney disease, stage 3a 11/23/2020 Overview: Per CKD protocol Hypertensive kidney disease with chronic kidney disease stage III 08/25/2020 Hypertensive kidney disease with stage 3a chronic kidney disease 05/24/2020 Overview: Per CKD protocol Diabetes mellitus with stage 3 chronic kidney di sease 08/26/2018 Overview: Per CKD protocol #1 HTN, goal below 130/80 02/11/2018 Rotator cuff syndrome of left shoulder 8 Type 2 diabetes mellitus wit h hemoglobin A1c goal of less than 8.0% 08/17/2016 Vitamin D deficiency 09/14/2011 Degeneration of lumbosacral intervertebral disc 07/18/2011 Displacement of lumbar inter vertebral disc without myelopathy 07/18/2011 Mixed dyslipidemia 12/16/2009 Esophageal reflux 10/05/2009 DJD, CERVICAL 10/22/2006 ADVANCE DIRECTIVE INFORMATION 01/02/2005 Overview: No, Advance Directive brochure offered , patient declined. documented as of this encounter (statuses as of 05/10/2023) Resolved Problems Problem Noted Date Diagnosed Date Resolved Date Hypertensive kidney disease with chronic kidney disease stage III 11/06/2018 05/27/2020 Overview: Per CKD protocol HTN, goal below 150/90 01/07/201402/11 Thoracic and lumbosacral neuritis 07/18/2011 08/18/2019 OVERWEIGHT 12/16/2009 04/23/2017 HTN, goal below 130/80 11/09/200907/29 Unspecified adverse effect o f other drug, medicinal and biological substance(995.29) 11/09/2009 04/23/2017 Screening for prostate cancer 10/05/2009 04/23/2017 S/P SURGERY, RECUR UNILAT INGUIN SHAN 07/11/2007 04/23/2017 BRADYCARDIA 07/11/2007 04/23/2017 Intestinal obstruction 07/11/200704/23 DIZZINESS 10/22/2006 04/23/2017 Myalgia and myositis 10/22/2006 017 Nausea 10/22/2006 04/23/2017 Overview: ICD-10 update of inactive term Acute pharyngitis 10/22/2006 09/03/2008 Overview: Resolved per Benign Acute Dxs Protocol #3 HTN, goal below 140/90 10/29/200311/09 RECUR LALO TORREZ 03/2017 documented as of this encounter (statuses as of 05/10/2023) Immunizations Name Administration Dates Next Due COVID-19 mRNA, LNP-s, No Pre serve, 2-Dose Series (Pfizer) 10/27/2020,10/01/2020 PPD 09/19/2005 Pneumococcal Conjugate Vacc, 13 Valent (Prevnar) 05/16/2016 Pneumococcal Polysaccharide PPV23 (Pneumovax) SEASONAL INFLUENZA, PF, 6 M & Above, IM , (FLULAVAL or FLUZONE) 04/23/2017 Seasonal Influenza, Quadrivalent Hd (Fluzone Hd) 06/15/2022 Seasonal Influenza, Quadrivalent, No Preserve, I M 04/28/2016,05/31/2015 Seasonal Influenza, Split, IIV3, With Preserve, Inj 04/20/2016,03/27/2014 03/27/2015 TDAP (age 10 and older)(Boostrix) 09/01/2022 TDAP (age 11 and older)(Adacel) 09/11/2012 Varicella Zoster Vaccine (Adult) 12/14/2014 Zoster Vaccine Recombinant (Shingrix) 08/19/2019 ,02/11/2018 documented as of this encounter Social History Tobacco Use Types Packs/Day Years Used Date Smoking Tobacco: Never Passive Smoke Exposure: Past Smokeless Tobacco: Never Passive Exposure Comments:So metimes Alcohol Use Standard Drinks/Week Comments Yes 0 (1 standard drink = 0.6 oz pur e alcohol) 1-2 in evenings Sex and Gender Information Value Date Recorded Sex Assigned at Male 11/11/2018 2:51 PM EDT Gender Identity Male 11/11/2018 2:51 PM EDT Sexual Orientation Straight 11/11/2018 2: 51 PM EDT Job Start Date Occupation Industry Not on file Not on file Not on file documented as of this encounter Miscellaneous Notes * Telephone Encounter - Nayeli Fernandes [facility] - 05/10/2023 2:02 PM EDTSigned Prescriptions: Disp Refills Losartan Potassium-HCTZ 50-12.5 MG Oral Ta*45 Tab*3 Sig: TAKE 1/2 TABLET BY MOUTH EVERY DAYAuthorizing Provider: AIRAM LAYTON User: NAYELI FERNANDES documented in this encounter Plan of Treatment Upcoming Encounters Date Type Department Care Team (Late st Contact Info) Description 09/04/2023 9:40 AM EST Office Visit Family [facility] [address] [place] [facility] [phone] Airam Layton MD [address], [place] [phone] 10/16/2023 3:00 PM EDT Office Visit Dermatology, [place] [address] [place] [facility] [place] [address] Manjula Calvo, [place] [address] [place] [address] [place] [phone] Scheduled Procedures Name Priority Associated Diagnoses Date/Ti me COLONOSCOPY FLEXIBLE PROXIMA L DIAGNOSTIC Recall Personal history of colonic polyps Health Maintenance Due Date Last Done Comments Hepatitis C Screening 12/10/1963 Hepatitis B (1 of 3 - Risk 3-dose series) 2003 Depression Screening 04/02/2021 04/02/2020 COVID-19 Vaccine ( season) 2023 10/27/2020, 10/01/2020, 09/13/2020, Additional history exists Influenza Vaccine (FLU shot) (#1) 2023 06/15/2022, 04/23/2017, 04/28/2016, Additional history exists Albumin/Creatinine Ratio 04/14/2023 022, 02/17/2021, 02/20/2020, Additional history exists CKD PHOS USE SMARTSET 51678 04/14/202303/18, 08/19/2019, 08/30/2018 Diabetic Foot Exam 09/01/2023 09/01/2022, 0 11/08/2021, 08/25/2020, Additional history exists GFR 09/02/2023 03/02/2023, 04/2 11/2022, 09/01/2022, Additional history exists HbA1c 09/02/2023 03/02/2023, 09/15, 09/01/2022, Additional history exists CKD HGB USE SMARTSET 89547 10/13/202310/12, 04/14/2022, 08/26/2021, Additional history exists DIABETES-EYE EXAM 02/29/2024 02/28/2023, , 01/24/2021, Additional history exists COLONOSCOPY-EVERY 5 YRS AGES 18-100 04/12/2025 04/12/2020, 04/12/2020, 01/06/2015, Additional history exists DTaP,Tdap,and Td Vaccines (3 - Td or Tdap) 09/01/2032 09/01/2022, 09/11/2012, 12/08/2003, Additional history exists Pneumococcal Vaccine: 65+ Years Completed 05/16/2016, 11/01/2009, 12/08/2003 Zoster Vaccines Completed 08/19/2019, 01/15, 12/14/2014 GARDASIL-HPV IMMUNIZATION SERIES Aged Out No longer eligible based on patient's age to complete this topic MENINGOCOCCAL (MENACTRA/MENVEO) Aged Out No longer eligible based on patient's age to complete this topic documented as of this encounter Medical Devices Not on filedocumented as of this encounter Visit Diagnoses Diagnosis HTN, goal below 130/80 Unspecified essential hypertension documented in this encounter Care Teams Area Field Person Relationship Specialty Start Date End Date Airam Layton MD [address] [place] [address] PCP - General 09/11/02 documented as of this encounter
--- OUTSIDE RECORDS SUMMARY | 2023-08-16 15:29 | External Medical Summary | Summary of Care ---
Author Name Unknown Organization [facility] Address [address] [place] [address] Phone [phone] Care Team Providers Care Diamond Sorter Name Role Phone David Layton MD Primary Care Provider Reason for Visit * Reason Comments Outpatient Testing Encounter Details Date Type Department Care Team Description 03/02/2023 Laboratory Laboratory, [place] [address] [place] [address] [place] [address] [place] [address] HTN, goal below 130/80; Hypertensive kidney disease with stage 3a chronic kidney disease; Mixed dyslipidemia; Type 2 diabetes mellitus with hemoglobin A1c goal of less than 8.0% ([facility]) Allergies Active Allergy Reactions Severity Noted Date Comments Lisinopril Cough Low 07/29/2014 Oxycodone Nausea/vomiting 07/18/2011 documented as of this encounter (statuses as of 03/02/2023) Medications Medication Sig Dispensed Refills Start Date End Date Status ASPIRIN EC LOW STRENGTH TBEC 81 MG OR one by mouth daily 34 5 12/08/2003 Active VITAMIN D 1000 UNITS PO CAPS Take by mouth daily. 0 Active vitamin b 12 (CYANOCOBALAMIN) 1000 MCG TABSIndications:B1 2 deficiency Take 1 Tab by mouth daily. 100 Tab 5 08/23/2017 Active Acetaminophen 500 MG Oral Tablet Take 2 Tablets by mouth every 4 hours as needed. 0 Active OneTouch UltraSoft LancetsIndications :Type 2 diabetes mellitus with hemoglobin A1c goal of less than 8.0% (HCC) Use up to two times a day as directed 100 Each 3 08/30/2021 Active OneTouch Ultra Blue In Vitro Strip (Glucose Blood)Indications: Type 2 diabetes mellitus with hemoglobin A1c goal of less than 8.0% (HCC) UP TO TWO TIMES DAILY OR DIRECTED 100 Strip 3 08/30/2021 Active Fluticasone Propionate 50 MCG/ACT Nasal SuspensionIndicati ons:Viral URI with cough Administer into each nostril 2 Sprays in the morning. 16 g 1 11/08/2021 Active Losartan Potassium-HCTZ 50-12.5 MG Oral Tablet (Hyzaar)Indication s:HTN, goal below 130/80 TAKE 1/2 TABLET BY MOUTH ONCE DAILY 45 Tablet 3 04/21/2022 Active metFORMIN HCl ER 500 MG Oral Tablet Extended Release 24 Hour (Glucophage XR)Indications:Typ e 2 diabetes mellitus with hemoglobin A1c goal of less than 8.0% (HCC) TAKE 1 TABLET BY MOUTH TWICE A DAY 180 Tablet 2 08/11/2022 Active Pantoprazole Sodium 40 MG Oral Tablet Delayed Release (Protonix)Indicati ons:Gastroesophage al reflux disease, unspecified whether esophagitis present TAKE 1 TABLET BY MOUTH DAILY 180 Tablet 2 10/12/2022 Active Atorvastatin Calcium 20 MG Oral Tablet (Lipitor)Indicatio ns:Type 2 diabetes mellitus with hemoglobin A1c goal of less than 8.0% (HCC),Mixed dyslipidemia TAKE 1 TABLET BY MOUTH EVERY DAY IN THE MORNING 90 Tablet 1 12/08/2022 Active Tamsulosin HCl 0.4 MG Oral Capsule (Flomax)Indication s:Obstructive uropathy Take 1 Capsule by mouth in the morning. Occasionally takes 1 additional capsule daily if needed.. 100 Capsule 3 12/17/2022 Active documented as of this encounter (statuses as of 03/02/2023) Active Problems Problem Noted Date Hx of actinic keratosis 02/14/2022 Chronic kidney disease, stage 3a 021 Overview: Per CKD protocol Hypertensive kidney disease with chronic kidney disease stage III 08/25/2020 Hypertensive kidney disease with stage 3 a chronic kidney disease 05/24/2020 Overview: Per CKD protocol Diabetes mellitus with stage 3 chronic k idney disease 08/26/2018 Overview: Per CKD protocol #1 HTN, goal below 130/80 02/11/2018 Rotator cuff syndrome of left shoulder 0 02/11/2018 Type 2 diabetes mellitus with hemoglobin A1c goal of less than 8.0% 08/17/2016 Vitamin D deficiency 09/14/2011 Degeneration of lumbosacral intervertebr al disc 07/18/2011 Displacement of lumbar intervertebral di sc without myelopathy 07/18/2011 Mixed dyslipidemia 12/16/2009 Esophageal reflux 10/05/2009 DJD, CERVICAL 10/22/2006 ADVANCE DIRECTIVE INFORMATION 01/02/2005 Overview: No, Advance Directive brochure offered , patient declined. documented as of this encounter (statuses as of 03/02/2023) Resolved Problems Problem Noted Date Resolved Date Hypertensive kidney disease with chronic kidney disease stage III 11/06/2018 05/27/2020 Overview: Per CKD protocol HTN, goal below 150/90 01/07/2014 8 Thoracic and lumbosacral neuritis 07/18/2011 08/18/2019 OVERWEIGHT 12/16/2009 04/23/2017 HTN, goal below 130/80 11/09/2009 5 Unspecified adverse effect o f other drug, medicinal and biological substance(995.29) 11/09/2009 04/23/2017 Screening for prostate cancer 10/05/2009 S/P SURGERY, RECUR UNILAT INGUIN SHAN 07/11/2007 04/23/2017 BRADYCARDIA 07/11/2007 04/23/2017 Intestinal obstruction 07/11/2007 7 DIZZINESS 10/22/2006 04/23/2017 Myalgia and myositis 10/22/2006 04/23/2017 Nausea 10/22/2006 04/23/2017 Overview: ICD-10 update of inactive term Acute pharyngitis 10/22/2006 09/03/2008 Overview: Resolved per Benign Acute Dxs Protocol #3 HTN, goal below 140/90 10/29/2003 0 RECUR LALO TORREZ 017 documented as of this encounter (statuses as of 03/02/2023) Immunizations Name Administration Dates Next Due COVID-19 mRNA, LNP-s, No Pre serve, 2-Dose Series (Pfizer) 10/27/2020,10/01/2020 PPD 09/19/2005 Pneumococcal Conjugate Vacc, 13 Valent (Prevnar) 05/16/2016 Pneumococcal Polysaccharide PPV23 (Pneumovax) Seasonal Influenza, PF, 6 mo ns & Above, IM , (Flulaval) 04/23/2017 Seasonal Influenza, Quadrivalent Hd (Fluzone Hd) [...] oz pur e alcohol) 1-2 in evenings Food Insecurity Answer Date Recorded Within the past 12 months, y ou worried that your food would run out before you got money to buy more. Never true 04/02/2020 Within the past 12 months, t he food you bought just didn't last and you didn't have money to get more. Never true 04/02/2020 Sex Assigned at Date Recorded Male 11/11/2018 2:51 PM E DT Job Start Date Occupation Industry Not on file Not on file Not on file documented as of this encounter Plan of Treatment Upcoming Encounters Date Type Specialty Care Team Description 09/04/2023 Office Visit Family Medicine David Layton MD [address] [place] [address] 10/16/2023 Office Visit Dermatology Manjula Calvo PA-C [address] [place] [address] [place] [phone] Pending Results Name Type Priority Associated Diagnoses Date /Time COMPREHENSIVE METABOLIC PANEL Lab Routine HTN, goal below 130/80 Hypertensive kidney disease with stage 3a chronic kidney disease 03/02/2023 2:50 PM EDT LIPID PANEL WITH DIRECT LDL IF TG IS HIGH Lab Routine Mixed dyslipidemia 03/02/2023 2:50 PM EDT HEMOGLOBIN A1C Lab Routine Type 2 diabetes mellitus with hemoglobin A1c goal of less than 8.0% (HCC) 03/02/2023 2:50 PM EDT Scheduled Procedures Name Priority Associated Diagnoses Date/Ti me COLONOSCOPY FLEXIBLE PROXIMA L DIAGNOSTIC Recall Personal history of colonic polyps Health Maintenance Due Date Last Done Comments Hepatitis C Screening 12/10/1963 COVID-19 Vaccine (5 - Pfizer series) 12/22/2020 10/27/2020, 10/01/2020, 09/13/2020, Additional history exists Depression Screening, Annual for Pts 12 and Over 04/02/2021 04/02/2020 DIABETES-EYE EXAM 02/01/2023 02/01/2022, , 01/11/2020, Additional history exists Influenza Vaccine (FLU shot) (#1) 2023 06/15/2022, 04/23/2017, 04/28/2016, Additional history exists Albumin/Creatinine Ratio 04/14/20232 022, 02/17/2021, 02/20/2020, Additional history exists CKD PHOS USE SMARTSET 23809 04/14/2023 09/3 , 08/19/2019, 08/30/2018 HbA1c 04/14/2023 10/12/2022, 08/16, 04/14/2022, Additional history exists GFR 05/09/2023 11/07/2022, 08/16, 04/14/2022, Additional history exists DIABETES-FOOT EXAM 09/01/2023 09/01/2022, 0 11/08/2021, 08/25/2020, Additional history exists CKD HGB USE SMARTSET 61214 10/13/202310/12, 04/14/2022, 08/26/2021, Additional history exists COLONOSCOPY-EVERY 5 YRS AGES 18-100 04/12/2025 04/12/2020, 04/12/2020, 01/06/2015, Additional history exists DTaP,Tdap,and Td Vaccines (3 - Td or Tdap) 09/01/2032 09/01/2022, 09/11/2012, 12/08/2003, Additional history exists Pneumococcal Vaccine: 65+ Years Completed 05/16/2016, 11/01/2009, 12/08/2003 Zoster Vaccines Completed 08/19/2019, 01/15, 12/14/2014 GARDASIL-HPV IMMUNIZATION SERIES Aged Out No longer eligible based on patient's age to complete this topic Hepatitis B Aged Out No longer eligi ble based on patient's age to complete this topic MENINGOCOCCAL (MENACTRA/MENVEO) Aged Out No longer eligible based on patient's age to complete this topic documented as of this encounter Medical Devices Not on filedocumented as of this encounter Visit Diagnoses Diagnosis HTN, goal below 130/80 Unspecified essential hypertension Hypertensive kidney disease with stage 3a chronic kidney disease Mixed dyslipidemia Mixed hyperlipidemia Type 2 diabetes mellitus with hemoglobin A1c goal of less than 8.0% (HCC) documented in this encounter Care Teams Diamond Sorter Relationship Specialty Start Date End Date David Layton MD [address] [place], [place] [phone] PCP - General 09/11/02 documented as of this encounter
--- OUTSIDE RECORDS SUMMARY | 2023-08-16 15:29 | External Medical Summary | Summary of Care ---
Author Name Unknown Organization [facility] Address [address] [place] [address] Phone [phone] Care Team Providers Care Gold Leaf Gilder Name Role Phone David Layton MD Primary Care Provider [phone] Reason for Visit * Reason Comments Re-Check 6 month return jcarlos rned that he may have a UTI due to urine frequency and color Encounter Details Date Type Department Care Team Description 03/02/2023 Office Visit [facility] [address] [place] [address] David Layton MD [address] [place] [address] Type 2 diabetes mellitus with hemoglobin A1c goal of less than 8.0% ([facility])*; HTN, goal below 130/80; Chronic kidney disease, stage 3a ([facility]); Hypertensive kidney disease with stage 3a chronic kidney disease; Mixed dyslipidemia; Urinary frequency Allergies Active Allergy Reactions Severity Noted Date [...] 08/30/2021 Active Fluticasone Propionate 50 MCG/ACT Nasal SuspensionIndicat [...] if needed.. 100 Capsule 3 12/17/2022 Active Famotidine 20 MG Oral Tablet (PEPCID) TAKE 1 TABLET BY MOUTH EVERYDAY AT BEDTIME 90 Tab 1 05/11/2020 3 Discontinu ed(Medicat ion List Clean Up) Clotrimazole 1 % External Cream (Lotrimin)Indicat ions:Tinea cruris Apply topically to affected area 2 times a day . Apply to affected areas twice daily x 4 weeks 60 g 3 08/30/2021 3 Discontinu ed(Medicat ion List Clean Up) Meclizine HCl 25 MG Oral Tablet (Antivert)Indicat ions:Vertigo Take 0.5-1 Tablets by mouth 3 times a day as needed for Dizziness. 30 Tablet 1 10/12/2022 3 Discontinu ed(Medicat ion List Clean Up) Benzonatate 100 MG Oral Capsule (Patricia Adhikari)Indication s:Acute cough Take 1 Capsule by mouth 3 times a day as needed for Cough. Do not cut, crush, or chew. 50 Capsule 1 10/12/2022 3 Discontinu ed(Medicat ion List Clean Up) Nirmatrelvir&Eloy navir 150/100 10 x 150 MG & 10 x 100MG Oral Tablet Therapy Pack (Paxlovid (150/100)) Take 1 pink tablet of Nirmatrelvir and 1 white tablet of Ritonavir two times a day by mouth. 20 Tablet 0 11/02/2022 3 Discontinu ed(End of Procedure) Clobetasol Propionate 0.05 % External Ointment (Temovate)Indicat ions:GA (granuloma annulare) APPLY TOPICALLY TO SPOTS ON RIGHT ARM TWICE DAILY UNTIL RESOLVED, THEN WHEN FLARING DIRECTED. 30 g 0 02/21/2023 3 Discontinu ed(Medicat ion List Clean Up) documented as of this encounter (statuses as [...] HTN, goal below 140/90 10/29/2003 0 RECUR UNILAT INGUIN SHAN 017 documented as of this encounter (statuses [...] Passive Smoke Exposure: Past Smokeless Tobacco: Never Tobacco Cessation:Counseling Given: Not Answered Passive Exposure Comments:Sometimes Alcohol Use Standard Drinks/Week Comments Yes 0 [...] on file documented as of this encounter Last Filed Vital Signs Vital Sign Reading Time Taken Comments Blood Pressure 122/68 03/02/2023 1:53 PM EDT Pulse 62 03/02/2023 1:53 PM EDT Temperature 36.3 C (97.4 F) 03/02/2023 1:53 PM ED T Respiratory Rate 18 03/02/2023 1:53 PM EDT Oxygen Saturation - - Inhaled Oxygen Concentration - - Weight 74 kg (163 lb 1.6 oz) 03/02/2023 1:53 PM EDT Height - - Body Mass Index 27.14 11/02/2022 7:35 AM EDT documented in this encounter Progress Notes * David Layton MD - 03/02/2023 2:08 PM EDT Subjective: Froy Conde is a 77 year old male. Chief Complaint Patient presents with Re-Check 6 month return concerned that he may have a UTI due to urine frequency and color HPI: 77-year-old seen today for regular six-month recheck. He has been doing reasonably well without any major change in his health status except that recently he has noted increase in urinary frequency and he has had some suprapubic some diffuse abdominal pressure. He is diabetic but he is not on an SGLT 2 med. He is taking tamsulosin 0.4 mg. His prescription indicates that he can take a 2nd dose but he really has only been taking 1 a day. It sounds like the blood sugars that he has checked have remained quite reasonable. His last hemoglobin A1c was 7.6 about 5 months ago. 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 of lumbar intervertebral disc without myelopathy M51.26 Vitamin D deficiency E55.9 Type 2 diabetes mellitus with hemoglobin A1c goal of less than 8.0% (HCC) E11.9 HTN, goal below 130/80 I10 Rotator cuff syndrome of left shoulder M75.102 Diabetes mellitus with stage 3 chronic kidney disease (HCC) E11.22, N18.30 Hypertensive kidney disease with stage 3a chronic kidney disease I12.9, N18.31 Hypertensive kidney disease with chronic kidney disease stage III (HCC) I12.9, N18.30 Chronic kidney disease, stage 3a (HCC) N18.31 Hx of actinic keratosis Z87.2 Current Outpatient Medications Medication Sig Dispense Refill ASPIRIN EC LOW STRENGTH TBEC 81 MG OR one by mouth daily 34 5 VITAMIN D 1000 UNITS PO CAPS Take by mouth daily. vitamin b 12 (CYANOCOBALAMIN) 1000 MCG TABS Take 1 Tab by mouth daily. 100 Tab 5 Acetaminophen 500 MG Oral Tablet Take 2 Tablets by mouth every 4 hours as needed. OneTouch UltraSoft Lancets Use up to two times a day as directed 100 Each 3 OneTouch Ultra Blue In Vitro Strip (Glucose Blood) UP TO TWO TIMES DAILY OR DIRECTED 100 Strip 3 Losartan Potassium-HCTZ 50-12.5 MG Oral Tablet (Hyzaar) TAKE 1/2 TABLET BY MOUTH ONCE DAILY 45 Tablet 3 metFORMIN HCl ER 500 MG Oral Tablet Extended Release 24 Hour (Glucophage XR) TAKE 1 TABLET BY MOUTHTWICE A DAY 180 Tablet 2 Pantoprazole Sodium 40 MG Oral Tablet Delayed Release (Protonix) TAKE 1 TABLET BY MOUTH DAILY 180 Tablet 2 Atorvastatin Calcium 20 MG Oral Tablet (Lipitor) TAKE 1 TABLET BY MOUTH EVERY DAY IN THE MORNING 90Tablet 1 Tamsulosin HCl 0.4 MG Oral Capsule (Flomax) Take 1 Capsule by mouth in the morning. Occasionally takes 1 additional capsule daily if needed.. 100 Capsule 3 Fluticasone Propionate 50 MCG/ACT Nasal Suspension Administer into each nostril 2 Sprays in the morning. 16 g 1 No current facility-administered medications for this visit. Review of patient's allergies indicates: Allergen Reactions Oxycodone Nausea/vomiting Lisinopril Cough Objective: BP 122/68 | Pulse 62 | Temp 36.3 C (97.4 F) (Infrared ) | Resp 18 | Wt 74 kg (163 lb 1.6 oz) | BMI 27.14 kg/m | BSA 1.84 m Physical Exam: His weight is down 4 for 5 lb in the last 6 months. He is not working on weight loss. His BMI is not excessively low but rather in the overweight status at 27. CONST: alert, pleasant, no acute distress HEAD: normocephalic, atraumatic NECK: supple, soft, no adenopathy Eyes - PERRLA, EOM'I OROPHARYNX: clear, no swelling or erythema, moist CV: regular rate and rhythm, no murmur CHEST: clear to auscultation bilaterally, no rales or wheezing ABD: soft, non tender, non distended, no masses or hepatosplenomegaly. He does not have any tenderness or mass palpable in the lower abdomen. EXT: no edema, no joint swelling or deformities, . SKIN: no rash or significant lesions Urine dipstick-totally normal pH 5.5. ASSESSMENT/PLAN: 1. Diabetes mellitus type 2: I suspect it is that he is in the same a general area as far as control. Most ideal would be hemoglobin A1c between 7 and 7.5. He will remain on the metformin ER 500 mg 2tabs twice a day per 2. Urinary frequency-probably related to obstructive uropathy. I asked that he increase his tamsulosin 0.4 mg to 2 tablets a day and is uses for while and see if it makes any difference. We will send the urine for culture in if it is positive he will need treated with antibiotic. 3. Gastroesophageal reflux-continue pain appraisal 40 mg daily. 4. Routine health maintenance-I encouraged COVID vaccine in April. He also should get flu shot inOctober. He is also where that if he test positive for COVID he should notify our office so that wecan start antiviral medicine. David Layton MD documented in this encounter Nursing Notes * Gail De La Cruz LPN - 03/02/2023 1:51 PM EDT Chief Complaint Patient presents with Re-Check 6 month return concerned that he may have a UTI due to urine frequency and color documented in this encounter Plan of Treatment Upcoming Encounters Date Type Specialty Care Team Description 09/04/2023 Office Visit Family Medicine David Layton MD [facility] [place] [address] 10/16/2023 Office Visit Dermatology Manjula Calvo PA-C [address] [place] [address] [place] [id number] Pending Results Name Type Priority Associated Diagnoses [...] hemoglobin A1c goal of less than 8.0% ([facility]) 03/02/2023 2:50 PM EDT CULTURE, URINE, QUANTITATIVE Lab Routine Chronic kidney disease, stage 3a (HCC) Urinary frequency 03/02/2023 2:46 PM EDT Scheduled Orders Name Type Priority Associated Diagnoses Orde r Schedule COMPREHENSIVE METABOLIC PANEL Lab Routine HTN, goal below 130/80 Hypertensive kidney disease with stage 3a chronic kidney disease Expected: 03/02/2023 (Approximate), Expires: 03/01/2024 LIPID PANEL WITH DIRECT LDL IF TG IS HIGH Lab Routine Mixed dyslipidemia Expected: 03/02/2023, Expires: 03/02/2024 HEMOGLOBIN A1C Lab Routine Type 2 diabetes mellitus with hemoglobin A1c goal of less than 8.0% (HCC) Expected: 03/02/2023 (Approximate), Expires: 03/01/2024 Scheduled Procedures Name Priority Associated Diagnoses Date/Ti [...] 04/23/2017, 04/28/2016, Additional history exists Albumin/Creatinine Ratio 04/14/202304/14/2 022, 02/17/2021, 02/20/2020, Additional history exists CKD PHOS USE SMARTSET 52335 04/14/2023 09/3 , 08/19/2019, 08/30/2018 HbA1c 04/14/2023 10/12/2022, 08/16, 04/14/2022, Additional history exists GFR 05/09/2023 11/07/2022, 08/16, 04/14/2022, Additional history exists DIABETES-FOOT EXAM 09/01/2023 09/01/2022, 0 11/08/2021, 08/25/2020, Additional history exists CKD HGB USE SMARTSET 72441 10/13/202310/12, 04/14/2022, 08/26/2021, Additional history exists COLONOSCOPY-EVERY [...] Not on filedocumented as of this encounter Procedures Procedure Name Priority Date/Time Associated Diagnosis Comments URINALYSIS, POINT OF CARE (ENTER/EDIT) Routine 03/02/2023 Chronic kidney disease, stage 3a (HCC) Urinary frequency documented in this encounter Results * URINALYSIS, POINT OF CARE (ENTER/EDIT) (03/02/2023) Color, Urine Dark Yellow Yellow or Light Yellow Clarity, Urine Clear Clear Glucose, Urine Negative Negative mg/dL Bilirubin, Urine Negative Negative Ketone, Urine Negative Negative mg/dL Specific [place], Urine 1.020 1.003 - 1.030 Blood, Urine Negative Negative pH, Urine 5.5 5.0 - 7.5 units Protein, Urine Negative Negative mg/dL Urobilinogen, Urine 0.2 0.2 - 1.0 mg/dL Nitrite, Urine Negative Negative Esterase, Urine Negative Negative Urine 03/02/2023 David Layton MD LAB POINT OF CARE [facility] ENTER/EDIT ORDERABLES documented in this encounter Visit Diagnoses Diagnosis Type 2 diabetes mellitus with hemoglobin A1c goal of less than 8.0% (HCC)- Primary HTN, goal below 130/80 Unspecified essential hypertension Chronic kidney disease, stage 3a (HCC) Hypertensive kidney disease with stage 3a chronic kidney disease Mixed dyslipidemia Mixed hyperlipidemia Urinary frequency documented in this encounter Care Teams Gold Leaf Gilder Relationship Specialty Start Date End Date David Layton MD [facility] [address] [place], [place] [id number] PCP - General 09/11/02 documented as of this encounter"
--- OUTSIDE RECORDS SUMMARY | 2023-08-16 15:29 | External Medical Summary | Summary of Care ---
Author Name Unknown Organization [facility] Address [address] [place] [address] Phone [phone] Care Team Providers Care Library Technology Instructor Name Role Phone Airam Layton MD Primary Care Provider [phone] Reason for Visit * Reason Onset Date Comments Medication Refill 07/02/2023 Encounter Details Date Type Department Care Team (Late st Contact Info) Description 07/02/2023 Refill [facility] [address] [place] [address] Airam Layton MD [address] [place] [address] Type 2 diabetes mellitus with hemoglobin A1c goal of less than 8.0% ([facility]); Mixed dyslipidemia Allergies Active Allergy Reactions Criticality Noted Date Comments Lisinopril Cough Low 07/29/2014 Oxycodone Nausea/vomiting 07/18/2011 documented as of this encounter (statuses as of 07/03/2023) Medications Medication Sig Dispensed Refills Start Date [...] the morning. 16 g 1 11/08/2021 Active metFORMIN HCl ER 500 MG Oral [...] MOUTH DAILY 180 Tablet 2 10/12/2022 Active Tamsulosin HCl 0.4 MG Oral Capsule (Flomax)Indicatio ns:Obstructive uropathy Take 1 Capsule by mouth in the morning. Occasionally takes 1 additional capsule daily if needed.. 100 Capsule 3 12/17/2022 Active Losartan Potassium-HCTZ 50-12.5 MG Oral Tablet (Hyzaar)Indicatio ns:HTN, goal below 130/80 TAKE 1/2 TABLET BY MOUTH EVERY DAY 45 Tablet 3 05/10/2023 Active Atorvastatin Calcium 20 MG Oral Tablet (Lipitor)Indicati ons:Type 2 diabetes mellitus with hemoglobin A1c goal of less than 8.0% (HCC),Mixed dyslipidemia TAKE 1 TABLET BY MOUTH EVERY DAY IN THE MORNING 90 Tablet 3 07/03/2023 Active Atorvastatin Calcium 20 MG Oral Tablet (Lipitor)Indicati ons:Type 2 diabetes mellitus with hemoglobin A1c goal of less than 8.0% (HCC),Mixed dyslipidemia TAKE 1 TABLET BY MOUTH EVERY DAY IN THE MORNING 90 Tablet 1 12/08/2022 3 Discontinu ed(Refill) documented as of this encounter (statuses as of 07/03/2023) Active Problems Problem Noted Date Diagnosed Date [...] as of this encounter (statuses as of 07/03/2023) Resolved Problems Problem Noted Date Diagnosed Date [...] #3 HTN, goal below 140/90 10/29/200311/09 RECUR UNILAT INGUIN SHAN 03/2017 documented as of this encounter (statuses as of 07/03/2023) Immunizations Name Administration Dates Next Due COVID-19 mRNA, LNP-s, No Pre serve, 2-Dose Series (Pfizer) 10/27/2020,10/01/2020 PPD 09/19/2005 Pneumococcal Conjugate Vacc, 13 Valent (Prevnar) 05/16/2016 Pneumococcal Polysaccharide PPV23 (Pneumovax) Seasonal Influenza, PF, 6 M & above, IM , (FluLaval or Fluzone) 04/23/2017 Seasonal Influenza, Quadrivalent Hd (Fluzone Hd) [...] oz pur e alcohol) 1-2 in evenings PHQ-2 Answer Date Recorded PHQ-2 Score 0 04/02/2020 Hunger Vital Sign Answer Date Recorded Worried About Running Out of Food in the Last Ye ar Never true 02/13/2019 Ran Out of Food in the Last Year Never true 02/13/2019 Sex and Gender Information Value Date Recorded Sex Assigned at Male 11/11/2018 2:51 PM EDT Gender Identity Male 11/11/2018 2:51 PM EDT Sexual Orientation Straight 11/11/2018 2: 51 PM EDT Job Start Date Occupation Industry Not on file Not on file Not on file documented as of this encounter Miscellaneous Notes * Telephone Encounter - Sia Cason [facility] - 07/03/2023 12:47 PM EST Signed Prescriptions: Disp Refills Atorvastatin Calcium 20 MG Oral Tablet (Li*90 Tab*3 Sig: TAKE 1 TABLET BY MOUTH EVERY DAY IN THE MORNING Authorizing Provider: AIRAM LAYTON Ordering User: SIA CASON * Telephone Encounter - [place] Rosario, patrol police sergeant - 07/02/2023 3:29 PM EST Did you pend patient's preferred pharmacy and medication before forwarding?yes Pharmacy: [id number] [facility] Pending Prescriptions: Disp Refills Atorvastatin Calcium 20 MG Oral Tablet (L*90 Tab*1 Sig: TAKE 1 TABLET BY MOUTH EVERY DAY IN THE MORNING Last Visit: 03/02/2023 (in office), Visit date not found (telemedicine) Next Visit: 09/04/2023 If no future appointments scheduled, and last appointment is greater than a year ago, please schedule patient for a follow-up appointment Last date the medication was ordered: 12/08/2022 Is this request for a controlled substance?No Urine Drug Screen:No results found for this or any previous visit. Patient Phone Numbers Labs: Lab Results Component Value Date/Time CREAT 1.2 03/02/2023 02:50 PM CREAT 1.3 (H) 08/19/2019 08:05 AM POTASSIUM 4.2 03/02/2023 02:50 PM POTASSIUM 4.1 08/19/2019 08:05 AM TSH 1.66 09/12/2011 03:11 PM LDLCALC 68 02/20/2020 10:00 AM LDLDIRECT 71 03/02/2023 02:50 PM LDLDIRECT NOT APPLICABLE 02/20/2020 10:00 AM ALT 19 03/02/2023 02:50 PM ALT 21 08/19/2019 08:05 AM HGBA1C 7.6 (H) 03/02/2023 02:50 PM HGBA1C 7.3 (H) 02/20/2020 10:00 AM documented in this encounter Plan of Treatment Upcoming Encounters Date Type Department Care Team (Late st Contact Info) Description 09/04/2023 9:40 AM EST Office Visit Family [place] [address] [place] [facility] [place] [address] Airam Layton MD [address] [place] [facility] [place] [address] 09/17/2023 10:30 AM EST Office Visit Gastroenterology, [facility] [address] [place] [address] Alyssa Vincent CRNP [address] [place] [address] 10/16/2023 3:00 PM EDT [place] [address] [place] [facility] [place] [address] Manjula Calvo PA-C [address] [place] [address] [place] [address] Scheduled Procedures Name Priority Associated Diagnoses Date/Ti [...] Additional history exists CKD PHOS USE SMARTSET 88543 04/14/2023 093 , 08/19/2019, 08/30/2018 Diabetic Foot Exam 09/01/2023 09/01/2022, 0 11/08/2021, 08/25/2020, Additional history exists GFR 09/02/2023 03/02/2023, 04/11/2022, 09/01/2022, Additional history exists HbA1c 09/02/2023 03/02/2023, 09/15, 09/01/2022, Additional history exists CKD HGB USE SMARTSET 49311 10/13/202310/12, 04/14/2022, 08/26/2021, Additional history exists Diabetic Eye Exam 02/29/2024 02/28/2023, , 01/24/2021, Additional history exists [...] as of this encounter Visit Diagnoses Diagnosis Type 2 diabetes mellitus with hemoglobin A1c goal of less than 8.0% (HCC) Mixed dyslipidemia Mixed hyperlipidemia documented in this encounter Care Teams Library Technology Instructor Relationship Specialty Start Date End Date Airam Layton MD [address] [place] [address] PCP - General 09/11/02 documented as of this encounter
--- OUTSIDE RECORDS SUMMARY | 2023-08-16 15:29 | External Medical Summary | Summary of Care ---
Author Name Unknown Organization [facility] Address [address] [place] [address] Phone [phone] Care Team Providers Care Biodiesel Processing Technician Name Role Phone David Layton MD Primary Care Provider [phone] Encounter Details Date Type Department Care Team Description 03/08/2023 Orders Only [facility] [address] [place] [address] David Layton MD [address] [place] [address] Allergies Active Allergy Reactions Severity Noted Date Comments Lisinopril Cough Low 07/29/2014 Oxycodone Nausea/vomiting 07/18/2011 documented as of this encounter (statuses as of 03/08/2023) Medications Medication Sig Dispensed Refills Start Date [...] hemoglobin A1c goal of less than 8.0% ([facility]) Use up to two times a [...] as of this encounter (statuses as of 03/08/2023) Active Problems Problem Noted Date Hx of [...] as of this encounter (statuses as of 03/08/2023) Resolved Problems Problem Noted Date Resolved Date [...] as of this encounter (statuses as of 03/08/2023) Immunizations Name Administration Dates Next Due COVID-19 [...] Family Medicine David Layton MD [address] [place] [address] 10/16/2023 Office Visit Dermatology Manjula Calvo PA-C [address] [place] [address] [place] [phone] Scheduled Procedures Name Priority Associated Diagnoses Date/Ti me COLONOSCOPY FLEXIBLE PROXIMA L DIAGNOSTIC Recall Personal history of colonic polyps Health Maintenance Due Date Last Done Comments Hepatitis C Screening 12/10/1963 COVID-19 Vaccine (5 - Pfizer series) 12/22/2020 10/27/2020, 10/01/2020, 09/13/2020, Additional history exists Depression Screening, Annual for Pts 12 and Over 04/02/2021 04/02/2020 Influenza Vaccine (FLU shot) (#1) 2023 06/15/2022, 04/23/2017, 04/28/2016, Additional history exists Albumin/Creatinine Ratio 04/14/2023 022, 02/17/2021, 02/20/2020, Additional history exists CKD PHOS USE SMARTSET 17434 04/14/202303/18, 08/19/2019, 08/30/2018 DIABETES-FOOT EXAM 09/01/2023 09/01/2022, 0 11/08/2021, 08/25/2020, Additional history exists GFR 09/02/2023 03/02/2023, 04/11/2022, 09/01/2022, Additional history exists HbA1c 09/02/2023 03/02/2023, 09/15, 09/01/2022, Additional history exists CKD HGB USE SMARTSET 95031 10/13/202310/12, 04/14/2022, 08/26/2021, Additional history exists DIABETES-EYE [...] Procedure Name Priority Date/Time Associated Diagnosis Comments DIABETIC EYE EXAM Routine 02/28/2023 documented in this encounter Results * DIABETIC EYE EXAM (02/28/2023) 02/28/2023 History Per Patient OTHER OUTSIDE LAB (SEE SCANNED REPORT) documented in this encounter Care Teams Biodiesel Processing Technician Relationship Specialty Start Date End Date David Layton MD [address] [place], [place] [phone] PCP - General 09/11/02 documented as of this encounter
--- OUTSIDE RECORDS SUMMARY | 2023-08-16 15:29 | External Medical Summary ---
Author Name Unknown Address Unknown Organization K01:[facility] - [address] [place] [address] Laboratory Report Ordering Provider Test Date Status ZIGGY ALEGRIA 03/02/2023 14:50:01 Final Observation Date Value Abnormality Reference (Units ) Status Triglyceride 03/02/2023 14:50:01 206 Above high normal <=174 (mg/dL) Final Triglyceride Reference Range s (mg/dL):
<150 Acceptable
150-174 Borderline high
175-499 High
>=500 Very high Cholesterol 03/02/2023 14:50:01 150 <200 (mg /dL) Final Total Cholesterol Reference Ranges (mg/dL):
<200 Desirable
200-239 Borderline high
>=240 High HDL 03/02/2023 14:50:01 54 >39 (mg/dL ) Final HDL Cholesterol Reference Ra nges (mg/dL):
>=60 High (Desirable)
<50 Low (Undesirable) For Females
<40 Low (Undesirable) For Males NON-HDL CHOLESTEROL 03/02/2023 14:50:01 96 <=159 (mg/dL) Final Non-HDL Cholesterol Referenc e Range (mg/dL):
<100 Target level for high risk ASCVD patient
<130 Optimal for general population
130-159 Near optimal for general population
160-189 Borderline High
190-219 High
>=220 Very High Performing Location [facility] - [address] [place] [address]
--- OUTSIDE RECORDS SUMMARY | 2023-08-16 15:30 | External Medical Summary | Summary of Care ---
Author Name Unknown Organization [facility] Address [address] [place] [address] Phone [phone] Care Team Providers Care Medicinal Plant Picker Name Role Phone David Layton MD Primary Care Provider [phone] Reason for Visit * Reason Onset Date Comments Health Maintenance 02/23/2023 Encounter Details Date Type Department Care Team Description 02/23/2023 Telephone [facility] [address] [place] [address] David Layton MD [address] [place] [address] Health Maintenance Allergies Active Allergy Reactions Severity Noted Date Comments Lisinopril Cough Low 07/29/2014 Oxycodone Nausea/vomiting 07/18/2011 documented as of this encounter (statuses as of 02/23/2023) Medications Medication Sig Dispensed Refills Start Date [...] every 4 hours as needed. 0 Active Famotidine 20 MG Oral Tablet (PEPCID) TAKE 1 TABLET BY MOUTH EVERYDAY AT BEDTIME 90 Tab 1 05/11/2020 Active Clotrimazole 1 % External Cream (Lotrimin)Indicati ons:Tinea cruris Apply topically to affected area 2 times a day . Apply to affected areas twice daily x 4 weeks 60 g 3 08/30/2021 Active OneTouch UltraSoft LancetsIndications :Type 2 diabetes [...] MOUTH DAILY 180 Tablet 2 10/12/2022 Active Meclizine HCl 25 MG Oral Tablet (Antivert)Indicati ons:Vertigo Take 0.5-1 Tablets by mouth 3 times a day as needed for Dizziness. 30 Tablet 1 10/12/2022 Active Benzonatate 100 MG Oral Capsule (Tessalon Perles)Indications :Acute cough Take 1 Capsule by mouth 3 times a day as needed for Cough. Do not cut, crush, or chew. 50 Capsule 1 10/12/2022 Active Nirmatrelvir&Riton avir 150/100 10 x 150 MG & 10 x 100MG Oral Tablet Therapy Pack (Paxlovid (150/100)) Take 1 pink tablet of Nirmatrelvir and 1 white tablet of Ritonavir two times a day by mouth. 20 Tablet 0 11/02/2022 Active Atorvastatin Calcium 20 MG Oral Tablet (Lipitor)Indicatio ns:Type 2 diabetes mellitus with hemoglobin A1c goal of less than 8.0% ([facility]),Mixed dyslipidemia TAKE 1 TABLET BY MOUTH EVERY DAY IN THE MORNING 90 Tablet 1 12/08/2022 Active Tamsulosin HCl 0.4 MG Oral Capsule (Flomax)Indication s:Obstructive uropathy Take 1 Capsule by mouth in the morning. Occasionally takes 1 additional capsule daily if needed.. 100 Capsule 3 12/17/2022 Active Clobetasol Propionate 0.05 % External Ointment (Temovate)Indicati ons:GA (granuloma annulare) APPLY TOPICALLY TO SPOTS ON RIGHT ARM TWICE DAILY UNTIL RESOLVED, THEN WHEN FLARING DIRECTED. 30 g 0 02/21/2023 Active documented as of this encounter (statuses as of 02/23/2023) Active Problems Problem Noted Date Hx of [...] as of this encounter (statuses as of 02/23/2023) Resolved Problems Problem Noted Date Resolved Date [...] as of this encounter (statuses as of 02/23/2023) Immunizations Name Administration Dates Next Due COVID-19 mRNA, LNP-s, No Pre serve, 2-Dose Series (Ammado) 10/27/2020,10/01/2020 PPD 09/19/2005 Pneumococcal Conjugate Vacc, 13 Valent (Prevnar) 05/16/2016 Pneumococcal Polysaccharide PPV23 (Pneumovax) Seasonal Influenza, Quadrivalent Hd (Fluzone Hd) 06/15/2022 Seasonal Influenza, Quadriva lent, No Preserve, 6 Mons & Above, IM 04/23/2017 Seasonal Influenza, Quadrivalent, No Preserve, I M [...] encounter Miscellaneous Notes * Telephone Encounter - Sherrill Knutson LPN - 02/23/2023 11:19 AM EDT Care Gaps Comprehensive Care Outreach Last Office/Telemedicine Visit: 11/02/2022 (in office), Visit date not found (telemedicine) Next Office Visit: 03/02/2023 Hemoglobin AIC Results: Lab Results Component Value Date/Time HEMOGLOBIN A1C - [facility] 7.6 (H) 10/12/2022 10:02 AM HEMOGLOBIN A1C - [facility] 7.8 (H) 09/01/2022 03:09 PM HEMOGLOBIN A1C - [facility] 7.4 (H) 04/14/2022 08:51 AM HEMOGLOBIN A1C - [facility] 7.3 (H) 02/20/2020 10:00 AM HEMOGLOBIN A1C - [facility] 7.5 (H) 08/19/2019 08:05 AM HEMOGLOBIN A1C - [facility] 7.6 (H) 02/13/2019 10:35 AM Reviewed Health Maintenance below: Health Maintenance Topic Date Due Hepatitis C Screening Never done COVID-19 Vaccine (5 - Pfizer series) 12/22/2020 Depression Screening, Annual for Pts 12 and Over 04/02/2021 DIABETES-EYE EXAM 02/01/2023 Albumin/Creatinine Ratio 04/14/2023 Influenza Vaccine (FLU shot) (1) 03/16/2023 HbA1c 04/14/2023 CKD PHOS USE SMARTSET 66694 04/14/2023 GFR 05/09/2023 Eye Urine/labs add lipid Care Gap Outreach Action Taken: Left message documented in this encounter Plan of Treatment Upcoming Encounters Date Type Specialty Care Team Description 03/02/2023 Office Visit Family Medicine David Layton MD [address] [place] [address] 10/16/2023 Office Visit Dermatology Manjula Calvo PA-C [address] [place] [address] [place] [phone] Scheduled Procedures Name Priority Associated Diagnoses Date/Ti [...] 04/23/2017, 04/28/2016, Additional history exists Albumin/Creatinine Ratio 04/14/202304/14/ 022, 02/17/2021, 02/20/2020, Additional history exists CKD PHOS USE SMARTSET 95221 04/14/2023 09/3 , 08/19/2019, 08/30/2018 HbA1c 04/14/2023 10/12/2022, 08/16, 04/14/2022, Additional history exists GFR 05/09/2023 11/07/2022, 08/16, 04/14/2022, Additional history exists DIABETES-FOOT EXAM 09/01/2023 09/01/2022, 0 11/08/2021, 08/25/2020, Additional history exists CKD HGB USE SMARTSET 69108 10/13/202310/12, 04/14/2022, 08/26/2021, Additional history exists COLONOSCOPY-EVERY [...] Not on filedocumented as of this encounter Care Teams Medicinal Plant Picker Relationship Specialty Start Date End Date David Layton MD [address] [place] [address] PCP - General 09/11/02 documented as of this encounter
--- OUTSIDE RECORDS SUMMARY | 2023-08-16 15:30 | External Medical Summary | Summary of Care ---
Author Name Unknown Organization [facility] Address [address] [place] [address] Phone [phone] Care Team Providers Care Cold Meat Cook Name Role Phone David Layton MD Primary Care Provider [phone] Reason for Visit * Reason Comments eRx-Medication Refill Encounter Details Date Type Department Care Team Description 02/21/20[facility] [address] [place] [address] Sherrie Calvo PA-C [address] [place] [address] [place] [phone] [place] (granuloma annulare) Allergies Active Allergy Reactions Severity Noted Date Comments Lisinopril Cough Low 07/29/2014 Oxycodone Nausea/vomiting 07/18/2011 documented as of this encounter (statuses as of 02/21/2023) Medications Medication Sig Dispensed Refills Start Date [...] MOUTH EVERYDAY AT BEDTIME 90 Tab 1 0 Active Clotrimazole 1 % External Cream (Lotrimin)Indicat ions:Tinea cruris Apply topically to affected area 2 times a day . Apply to affected areas twice daily x 4 weeks 60 g 3 2 Active OneTouch UltraSoft LancetsIndication s:Type 2 diabetes [...] the morning. 16 g 1 2 Active Losartan Potassium-HCTZ 50-12.5 MG Oral Tablet (Hyzaar)Indicatio ns:HTN, goal below 130/80 TAKE 1/2 TABLET BY MOUTH ONCE DAILY 45 Tablet 3 2 Active metFORMIN HCl ER 500 MG [...] MOUTH DAILY 180 Tablet 2 3 Active Meclizine HCl 25 MG Oral Tablet (Antivert)Indicat ions:Vertigo Take 0.5-1 Tablets by mouth 3 times a day as needed for Dizziness. 30 Tablet 1 3 Active Benzonatate 100 MG Oral Capsule (Tessalon Perles)Indication s:Acute cough Take 1 Capsule by mouth 3 times a day as needed for Cough. Do not cut, crush, or chew. 50 Capsule 1 3 Active Nirmatrelvir&Eloy navir 150/100 10 x 150 MG & 10 x 100MG Oral Tablet Therapy Pack (Paxlovid (150/100)) Take 1 pink tablet of Nirmatrelvir and 1 white tablet of Ritonavir two times a day by mouth. 20 Tablet 0 3 Active Atorvastatin Calcium 20 MG Oral [...] if needed.. 100 Capsule 3 3 Active Clobetasol Propionate 0.05 % External Ointment (Temovate)Indicat ions:GA (granuloma annulare) APPLY TOPICALLY TO SPOTS ON RIGHT ARM TWICE DAILY UNTIL RESOLVED, THEN WHEN FLARING DIRECTED. 30 g 0 3 Active Clobetasol Propionate 0.05 % External Ointment (Temovate)Indicat ions:GA (granuloma annulare) APPLY TOPICALLY TO SPOTS ON RIGHT ARM TWICE DAILY UNTIL RESOLVED, THEN WHEN FLARING DIRECTED 30 g 0 3 02/22/20 23 Discontinued documented as of this encounter (statuses as of 02/21/2023) Active Problems Problem Noted Date Hx of [...] as of this encounter (statuses as of 02/21/2023) Resolved Problems Problem Noted Date Resolved Date [...] as of this encounter (statuses as of 02/21/2023) Immunizations Name Administration Dates Next Due COVID-19 mRNA, LNP-s, No Pre serve, 2-Dose Series (tarpipe) 10/27/2020,10/01/2020 PPD 09/19/2005 Pneumococcal Conjugate Vacc, 13 [...] encounter Miscellaneous Notes * Telephone Encounter - Sherrie Calvo PA-C - 02/21/2023 11:23 AM EDT Signed Prescriptions: Disp Refills Clobetasol Propionate 0.05 % External Oint*30 g 0 Sig: APPLY TOPICALLY TO SPOTS ON RIGHT ARM TWICE DAILY UNTIL RESOLVED, THEN WHEN FLARING DIRECTED. Authorizing Provider: SHERRIE CALVO * Telephone Encounter - Amber Dong LPN - 02/21/2023 10:13 AM EDTPending Prescriptions: Disp Refills Clobetasol Propionate 0.05 % External Oint*30 g 0 Sig: APPLY TOPICALLY TO SPOTS ON RIGHT ARM TWICE DAILY UNTIL RESOLVED, THEN WHEN FLARING DIRECTED * Telephone Encounter - Amber Dong LPN - 02/21/2023 10:12 AM EDT Pending Prescriptions: Disp Refills Clobetasol Propionate 0.05 % External Oin*30 g 0 Sig: APPLY TOPICALLY TO SPOTS ON RIGHT ARM TWICE DAILY UNTIL RESOLVED, THEN WHEN FLARING DIRECTED. 09/14/2022 (in office), Visit date not found (telemedicine) 10/16/2023 If no future appointments scheduled, and last appointment is greater than a year ago, please schedule patient for a follow-up appointment Last date the medication was ordered: 01/08/2023 Patient Phone Numbers Labs: Lab Results Component Value Date/Time CREAT 1.3 (H) 11/07/2022 01:01 PM CREAT 1.3 (H) 08/19/2019 08:05 AM POTASSIUM 4.6 04/14/2022 08:51 AM POTASSIUM 4.1 08/19/2019 08:05 AM TSH 1.66 09/12/2011 03:11 PM LDLCALC 68 02/20/2020 10:00 AM LDLDIRECT 74 04/14/2022 08:51 AM LDLDIRECT NOT APPLICABLE 02/20/2020 10:00 AM ALT 26 10/12/2022 10:02 AM ALT 21 08/19/2019 08:05 AM HGBA1C 7.6 (H) 10/12/2022 10:02 AM HGBA1C 7.3 (H) 02/20/2020 10:00 AM documented in this encounter Plan of Treatment Upcoming Encounters Date Type Specialty Care Team Description 03/02/2023 Office Visit Family [facility] [address] [facility] [address] 10/16/2023 Office Visit Dermatology Sherrie Calvo PA-C [address] [place] [address] [place] [phone] Scheduled Procedures Name Priority Associated Diagnoses Date/Ti [...] Additional history exists CKD PHOS USE SMARTSET 60091 04/14/2023 09/3 , 08/19/2019, 08/30/2018 HbA1c 04/14/2023 10/12/2022, 08/16, 04/14/2022, Additional history exists GFR 05/09/2023 11/07/2022, 08/16, 04/14/2022, Additional history exists DIABETES-FOOT EXAM 09/01/2023 09/01/2022, 0 11/08/2021, 08/25/2020, Additional history exists CKD HGB USE SMARTSET 13103 10/13/202310/12, 04/14/2022, 08/26/2021, Additional history exists COLONOSCOPY-EVERY [...] as of this encounter Visit Diagnoses Diagnosis GA (granuloma annulare) Other specified erythematous condition documented in this encounter Care Teams Cold Meat Cook Relationship Specialty Start Date End Date David Layton MD [address] [place] [address] PCP - General 09/11/02 documented as of this encounter
[2023-08-16] MEDS ORDERED: LORazepam 1 MG TAB PO PRN (18:16)
[2023-08-16] MEDS ORDERED: ONDANSETRON 4 MG OD TAB SL PRN (18:16)
[2023-08-16] MEDS ORDERED: MoRPHine SULFATE 10 MG/0.5 ML UDP PO PRN (18:16)
[2023-08-16] MEDS ORDERED: ONDANSETRON INJ 2 MG/ML 2 ML VIAL IV PRN (18:16)
[2023-08-16] MEDS: GLYCOPYRROLATE 0.2 MG/ML VIAL IV PRN (18:30)
[2023-08-16] MEDS: MoRPHine SULFATE 2 MG/ML CARP IV STA (18:30)
[2023-08-16] MEDS: MoRPHine SULFATE 2 MG/ML CARP IV PRN (18:53)
--- NOTE | 2023-08-17 07:43 | Discharge Summary ---
Date of Service August 16, 2023 Admission HPI Per Admitting Provider 77-year-old male with past medical history significant for type 2 diabetes, CKD stage III, hyperlipidemia, hypertension, GERD, degeneration of lumbosacral disc, presents with unresponsiveness and found to have a large intracranial bleed. Apparently patient was doing fine earlier today. He went to sleep fine. Woke up around 2 AM with the nausea vomiting and diarrhea. When went to check on him he complained of severe pain in the back of the head and was diaphoretic and then became unresponsive. EMS was called. For EMS he was minimally responsive but had gag reflex. EMS inserted oral airway and assisted with [id number] ventilation. Seems he was bradycardic in the 40s. In the ER he was intubated. CT head showing "large intraventricular hemorrhage with diffuse sulcal effacement suggesting of edema. Right cerebellar intraparenchymal hemorrhage. Difficult to adequately distinction from fourth ventricular hemorrhage. Small amount of left cerebellar intraparenchymal hemorrhage". ER talk to the [facility] [place] neurologist and images were reviewed and thought he was nonsurvivable. and family in the room. was notified of the findings. In case of cardiac arrest no plans for CPR as per but want to continue mechanical ventilation until her son and daughter arrives. As per no recent fevers. No complaints of any chest pains. No complaints of headache prior to this event.No injury. Past medical history. As mentioned above Past surgical history. Colonoscopy, EGD, injection of lumbosacral spine, repair of inguinal hernia, laparoscopic repair of recurrent inguinal hernia. Social history. . No smoking. Alcohol 1-2 drinks in the evenings. No drug use. Family history. Mother had cancer. Father had heart disorder and diabetes Admission Exam Per Admitting Provider General- s/p intubated. Head- atraumatic Eyes- pupils dilated and fixed and non reactive Neck- no JVD. Lungs- clear to auscultation no wheezing or crackles. Heart- regular rhythm; no murmur, no gallop. Abdomen- sluggish bowel sounds, soft, no distension. Extremities- no pretibial edema, no erythema seen. Neuro- s/p intubated Principal Diagnosis Intracranial hemorrhage Discharge Exam Patient . Discharge Data Allergies Allergy/AdvReac Type Severity Reaction Status Date / Time lisinopril AdvReac Intermediate Cough Verified 08/16/23 02:51 oxycodone AdvReac Intermediate NAUSEA/VOMI Verified 08/16/23 02:51 TING Consultations 08/16/23 03:58 ED Decision to Admit Stat 08/16/23 05:13 Consult Lottery Clerk Routine Ordered Studies 08/16/23 02:44 CT head/brain wo con Stat Hospital Course (1) Intracranial hemorrhage: 77-year-old male with past medical history significant for type 2 diabetes, CKD stage III, hyperlipidemia, hypertension, GERD, degeneration of lumbosacral disc, presents with unresponsiveness. CT of the head showed large intraventricular hemorrhage. Discussion was done by ED with neurologist on[facility]call at [facility]; the images were reviewed. The intraventricular hemorrhage was nonsurvivable as per the neurologist. Patient was intubated and was admitted to ICU. Palliative extubation was done in presence of family members. Patient at 9:59 PM on August. Please note the above document was generated using voice recognition software. It may contain grammatical, syntax or spelling errors. Any formal questions or concerns about the content, text or information contained within the body of this dictation should be directly addressed to the provider for clarification Total Time Total Time Spent Total Time Spent (In Minutes): 6 Total Time Includes: Examination of the Patient, Discharge Planning, Medication Reconciliation, Communication With Other Providers and Other Discharge Plan Discharge Items Patient Disposition: Other Date/Time: 08/16/23 21:59
== END 2023-08-16 23:59 | disposition expired | DRG 64 ==
LOC: ED 02:40 → 1E 04:30